=== PATIENT | male | born 1945 | race Caucasian/White ===

== ENCOUNTER 2019-03-28 05:56 | Outpatient (RCR) | payer MEDICARE, SELFPAY | END 2019-03-28 23:59 | disposition home or self-care (01) | LOC: ONCMED 05:56 | PROVIDERS: Family Provider Nurse Practitioner Family; Visit Provider Internal Medicine Hematology & Oncology | DX: Z51.12 Encounter for antineoplastic immunotherapy (principal); C16.0 Malignant neoplasm of cardia; C78.6 Secondary malignant neoplasm of retroperitoneum and peritoneum; C79.89 Secondary malignant neoplasm of other specified sites; F41.9 Anxiety disorder, unspecified; Z79.899 Other long term (current) drug therapy | CPT/HCPCS: 96367; 96413; 96417; 99214; J1100; J1453; J1642 ×2; J2469; J3490; J7050 ×3; J9267; J9308 ×2 ==

== ENCOUNTER 2019-04-20 05:55 | Outpatient (RCR) | payer MEDICARE, SELFPAY | END 2019-04-25 00:01 | LOC: ONCMED 05:55 | PROVIDERS: Family Provider Nurse Practitioner Family; Visit Provider Internal Medicine Hematology & Oncology | DX: C16.0 Malignant neoplasm of cardia (principal); C78.6 Secondary malignant neoplasm of retroperitoneum and peritoneum; C79.89 Secondary malignant neoplasm of other specified sites; R18.8 Other ascites; J18.9 Pneumonia, unspecified organism; Z79.899 Other long term (current) drug therapy | CPT/HCPCS: 99214 ==

== ENCOUNTER 2019-05-25 05:35 | Outpatient (RCR) | payer OTHER, SELFPAY ==
[2019-05-11] MEDS: sodium chloride 0.9% 250 ML 999 ML IV (11:15)
[2019-05-11] MEDS: acetaminophen 325 mg Tablet 650 MG PO (11:15)
--- NOTE | 2019-05-11 11:27 | ONC FU_ITS ---
Dr. Valladares follow up note Patient: Tavares Castaneda Unit #: [id number]: 1945 Dicatated By: Angela Valladares M.D.Date of Visit:May 11, 2019 Onc Med Follow-up/Prog Note History of Present Illness: Mr. Castaneda is a 73-year-old gentleman with history of progressive dysphagia for several months. In early February 2018 he developed some difficulty swallowing. He said he had food sticking under the sternum he would then have nausea and emesis. He did see a local surgeon who recommended EGD. On 03/07/2018 and he 100 went EGD with biopsy. A mass was found a distal esophagus/GEJ, no ulcer and gastritis. 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 HER-2/sean was pending. On 03/15/2018 he [facility] to [facility] with nausea vomiting and was admitted. A CT of the chest abdomen pelvis from 03/16/2018 showed frontal thickening of the distal esophagus/GEJ/ gastric cardia. There are also enlarged lymph nodes along the gastrohepatic ligament, but no distal disease. He reports an estimated 30 pounds weight loss since December 2017. On 03/28/2018 he underwent EUS at [facility]. 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 Also reported it was a few malignant appearing lymph nodes in the celiac region. There is no sign of significant pathology in the pancreas or the common bile duct. The visualized portion of the liver was unremarkable as well as endosonographic images of the left adrenal gland. PET CT from 03/30/2019 at [facility] reports hypermetabolic gastroesophageal junction mass with associated wall thickening with an SUV of 6.6. Scattered mediastinal lymph nodes show mild increased FDG uptake, SUV 2.7, likely inflammatory . There were no abnormal focal areas of FDG uptake to suggest additional sites of metastatic disease. On 04/06/2018 Mr. Castaneda was seen by Dr. Kulwant Malik at [facility] for surgical consult. It was recommended that he pursue neoadjuvant chemotherapy and then return back to Dr. Malik for consideration of possible total gastrectomy with Marco-en Y esophago-jejunostomy and possible feeding tube. He was seen by Dr. Ortiz medical oncologist at [facility] and she offered him FOLFOX or FLOT regimen. HER-2/sean status is negative. MSI is intact and PDL 1 is negative.. Mr. Castaneda opted to do his treatment closer to home and was referred to us . He began his first cycle of modified FOLFOX on 05/03/2018. Follow-up CT scan of chest abdomen pelvis done after 6 doses of FOLFOX, on 08/02/2018 showed slight decrease in size of gastroesophageal mass and decrease in size of an adjacent lymphadenopathy. No evidence of distant metastases Mr Castaneda was evaluated by Dr. Malik at [facility] who recommended continue with 6 more cycles of chemotherapy with FOLFOX and then reevaluate him for surgery. He completed 12 cycles on chemotherapy on 10/19/2018. Diagnostic laproscopy, peritoneal biopsy x3, excision of the left hepatic lobe lesion, esophagogastroduodenoscopy, transversus abdominis plane block on 12/23/[address] Linton at [facility], [place]. The operative reported the operative findings as: 1. widely metastatic medullary peritoneal carcinomatosis. 2. Left sided liver lesion which was resected and found to be a biliary hematoma. 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 Mr Castaneda went to [facility] for second opinion, and was evaluated surgeon who discussed about palliative surgery or hyperthermic intraperitoneal therapy and also saw Dr Urmila Barcenas who recommended ramucirumab and Taxol biweekly. Mr. Castaneda was returned to [facility] for the recommeneded treatment with Cyramza 8mg/kg day 1and paclitaxel 80 mg/m2 day 1 of a 14 day cycle. The paclitaxel was intentionally dose reduced due to pre-existing neuropathy. He began his first dose on February 14, 2019. Abdominal sonogram done on 03/21/2019 showed no evidence of ascites Was admitted to hospital on 04/03/2019 with right middle/lower lobe pneumonia treated with IV antibiotics responded well and was discharge home on oral antibiotics. Patient also underwent CT scan of chest abdomen pelvis on 04/02/2019 which showed complex pulmonary parenchymal abnormality likely infectious/inflammatory with a nodular complement warranting short-term follow-up. Mild right hilar lymphadenopathy could be reactive. Trace right pleural effusion. Moderate nonspecific abdominopelvic fat stranding and fascial thickening with small volume free fluid. cirrhotic morphology of the liver. Nonspecific adrenal thickening Patient was treated with oral antibiotic Zithromax for atypical coverage on 04/20/2019 and underwent follow-up chest x-ray on 05/04/2019 showed minimal residual vague T in the right perihilar region that is improved from prior study done on 04/25/2019 otherwise unremarkable exam Came for follow-up, denies any specific complaint except occasional postnasal drip and as per patient feels bad for day or 2 after chemotherapy otherwise no fever or chills no nausea or vomiting no diarrhea constipation no shortness of breath no palpitation, no abdominal pain no jaundice. Last chemotherapy with Taxol and cyramza was done on 03/28/2019 after the patient was admitted to hospital with pneumonia so chemotherapy was on hold since then and now ready to resume Medications: Latanoprost 1 drop(s) (of 0.005 %) Solution Ophthalmic daily, Lisinopril 1 Tablet (of 25 mg) Oral b.i.d., Metoprolol Tartrate 1 Tablet (of 50 mg) Oral b.i.d., Multivitamin Adults 1 Tablet Oral daily, Prochlorperazine Maleate 1 Tablet (of 10 mg) Oral q 8 hours PRN Allergies: Penicillins Review of Systems: Constitutional - Appetite is good and weight is stable. No fever, chills, hot flashes, or night sweats. Energy level is fair, ENMT - Positive for sinus congestion/drainage. No mouth sores. Positive for sore throat, Hematologic/Lymphatic - No abnormal bruising or bleeding, Respiratory - Positive for shortness of breath. Positive for cough. No pleuritic pain or hemoptysis. Pt is still recovering from pneumonia, Cardiovascular - No chest pains or palpitations, Gastrointestinal - Occasional nausea and vomiting. Occasional heartburn/indigestion. No diarrhea or constipation. No blood in the stool or black stools, Genitourinary (M) - No dysuria or hematuria. No urinary frequency. No urgency or incontinence, Musculoskeletal - No joint or bone pain, Neurologic - No headache or dizziness. Pt reports numbness/tingling in his hands, Psychiatric - No anxiety or depression. No insomnia. Vital Signs: Performed on May 11, 2019 10:30 Height - 66.00 in Weight - 171.4 lbs (HIGH) BSA - 1.87 sq.m BMI - 27.66 Temperature - 97.2 F (LOW) Pulse - 74 /min Respiration - 20 /min BP - 122/82 mm(hg) O2 Sat - 94 % (LOW) Pain - 0 Performance Status: 1 - No physically strenuous activity, but ambulatory and able to carry out light or sedentary work (e.g. office work, light house work). (ECOG) Physical Examination: ENMT - No oral exudates, ulcers, masses, thrush or mucositis. Oropharynx clear. Tongue normal, Respiratory - Lungs are clear to auscultation without rhonchi or wheezing, Cardiovascular - Regular rate and rhythm of heart, Abdomen - Non-tender, non-distended, Good bowel sounds. No guarding or rebound tenderness. No pulsatile masses, Extremities - no edema. Lab/Imaging: Test performed on May 04, 2019 10:57 Glucose 127 mg/dL BUN 18 mg/dL Creatinine 0.86 mg/dL Cr Clearance (Est) 88.96 mL/min Sodium 137 mmol/L Potassium 4.0 mmol/L Chloride 94 mmol/L CO2 32 mmol/L Calcium 8.9 mg/dL Protein, Total 6.9 g/dL Albumin 3.6 g/dL Bilirubin, Total 0.5 mg/dL Alkaline Phosphatase 58 IU/L AST (SGOT) 20 IU/L ALT (SGPT) 20 IU/L WBC 9.2 10^9/L RBC 4.92 10^12/L HGB 14.9 g/dL HCT 47.2 % MCV 95.9 fl MCH 30.3 pg MCHC 31.6 g/dL RDW 15.1 % Platelet Count 139 10^9/L MPV 11.1 fL Neutrophils (Gran) 6.85 10^9/L Lymphocytes 1.11 10^9/L Monocytes 0.88 10^9/L Eosinophils 0.24 10^9/L Basophils 0.04 10^9/L Manual Lymphocytes 12 % Manual Monocytes 10 % Manual Eosinophils 3 % Manual Basophils 0 % Test performed on Mar 13, 2019 09:22 Magnesium 2.3 mg/dL Ua Color yellow Ua Appearance clear Ua Specific [place] 1.020 Ua pH 6.0 Ua Protein trace Ua Glucose negative Ua Ketones negative Ua Blood negative Ua Leuk Esterase negative Ua Nitrites negative Ua Bilirubin negative Ua Urobilinogen 0.2 Test performed on Feb 28, 2019 10:25 Anion Gap 15.3 Globulin 2.0 gm/dL Neutrophil % 86.2 % Lymphocyte % 11.9 % Monocyte % 1.5 % Eosinophil % 0.0 % Basophils % 0.4 % Impression: 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 Liver biopsy was negative showed biliary hamartoma Dysphagia, due to above discussed with patient his disease status, stage and treatment options. He has been offered neoadjuvant chemotherapy per [facility] protocol followed by Marco-e -Y esophagojejunostomy. Considering his age, performance status, significant weight loss, recommended FOLFOX; he is HER-2/sean negative. MSI is intact and PD-L1 is negative. Mr. Castaneda began his first cycle of FOLFOX on 05/03/2018. Follow-up CT scan of chest abdomen pelvis done after 6 doses of FOLFOX, on 08/02/2018 showed slight decrease in size of gastroesophageal mass and decrease in size of an adjacent lymphadenopathy. No evidence of distant metastases Mr Castaneda was evaluated by Dr. Malik at [facility] who recommended continue with 6 more cycles of chemotherapy with FOLFOX and then reevaluate him for surgery. He completed 12 cycles on chemotherapy on 10/19/2018. Diagnostic laproscopy, peritoneal biopsy x3, excision of the left hepatic lobe lesion, esophagogastroduodenoscopy, transversus abdominis plane block on 12/23/[address] Linton at [facility] [place], [place]. The operative reported the operative findings as: 1. widely metastatic medullary peritoneal carcinomatosis. 2. Left sided liver lesion which was resected and found to be a biliary hematoma. 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 Mr Castaneda went to [facility] for second opinion, and was evaluated surgeon who discussed about palliative surgery or hyperthermic intraperitoneal therapy and also saw Dr Urmila Barcenas who recommended ramucirumab and Taxol biweekly. Mr. Castaneda was returned to [facility] for the recommeneded with Cyramza and paclitaxel. He began his first dose on February 14, 2019. Plan: Discussed with patient regarding his labs white blood count 9.2 hemoglobin 14.9 crit 47.2 platelets 139,000 CMP within normal limits Clinically, patient doing well, now recovered from recent episode of right lung pneumonia. His follow-up chest x-ray shows minimal residual vague opacity in the right perihilar which is improved. At this point we will resume his palliative chemotherapy Taxol/cyramza Today, then he will return to clinic in 2 weeks with CBC CMP Mild postnasal drip, could be due to chemotherapy, he was advised to try [id number] Zyrtec or Claritin. As far as feeling better for due to after chemotherapy is concerned could be due to hyperglycemia due to steroids, patient was advised to monitor his blood sugar and if elevated may consider sliding scale and he was also advised to maintain hydration. Next Return to clinic in 2 weeks with CBC CMP Signed By: Angela Valladares M.D. <<Signature on File>>
[2019-05-25 13:38] LABS: Lymphocytes # 0.4 10^3/uL (0.8-4.8); Lymphocytes % 16.1 %; Mean Corpuscular HGB Conc 32.6 g/dL (30.0-36.0); Mean Corpuscular Hemoglobin 29.9 pg (28.0-34.0); Mean Corpuscular Volume 91.7 fL (80-94); Mean Platelet Volume 11.9 fL (7.4-10.4); Monocytes % 1.3 %; Neutrophils # 1.9 10^3/uL (1.8-7.7); Neutrophils % 82.2 %; Nucleated Red Blood Cells % 0 %; Platelet Count 151 10^3/cmm (130-400); Red Blood Count 4.69 10^6/uL (4.1-5.3); Red Cell Distribution Width 14.5 % (12.1-15.1); White Blood Count 2.3 10^3/uL (4.0-10.0)
--- NOTE | 2019-05-25 16:07 | ONC FU_ITS ---
Dr. Valladares follow up note Patient: Tavares Castaneda Unit #: [id number]: 1945 Dicatated By: Angela Valladares M.D.Date of Visit:May 25, 2019 Onc Med Follow-up/Prog Note History of Present Illness: Mr. Castaneda is a 73-year-old gentleman with history of progressive dysphagia for several months. In early February 2018 he developed some difficulty swallowing. He said he had food sticking under the sternum he would then have nausea and emesis. He did see a local surgeon who recommended EGD. On 03/07/2018 and he 100 went EGD with biopsy. A mass was found a distal esophagus/GEJ, no ulcer and gastritis. 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 HER-2/sean was pending. On 03/15/2018 he presented to [facility] with nausea vomiting and was admitted. A CT of the chest abdomen pelvis from 03/16/2018 showed frontal thickening of the distal esophagus/GEJ/ gastric cardia. There are also enlarged lymph nodes along the gastrohepatic ligament, but no distal disease. He reports an estimated 30 pounds weight loss since December 2017. On 03/28/2018 he underwent EUS at [place]. 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 Also reported it was a few malignant appearing lymph nodes in the celiac region. There is no sign of significant pathology in the pancreas or the common bile duct. The visualized portion of the liver was unremarkable as well as endosonographic images of the left adrenal gland. PET CT from 03/30/2019 at [facility] reports hypermetabolic gastroesophageal junction mass with associated wall thickening with an SUV of 6.6. Scattered mediastinal lymph nodes show mild increased FDG uptake, SUV 2.7, likely inflammatory . There were no abnormal focal areas of FDG uptake to suggest additional sites of metastatic disease. On 04/06/2018 Mr. Castaneda was seen by Dr. Kulwant Malik at [facility] for surgical consult. It was recommended that he pursue neoadjuvant chemotherapy and then return back to Dr. Malik for consideration of possible total gastrectomy with Marco-en Y esophago-jejunostomy and possible feeding tube. He was seen by Dr. Ortiz medical oncologist at [facility] and she offered him FOLFOX or FLOT regimen. HER-2/sean status is negative. MSI is intact and PDL 1 is negative.. Mr. Castaneda opted to do his treatment closer to home and was referred to us . He began his first cycle of modified FOLFOX on 05/03/2018. Follow-up CT scan of chest abdomen pelvis done after 6 doses of FOLFOX, on 08/02/2018 showed slight decrease in size of gastroesophageal mass and decrease in size of an adjacent lymphadenopathy. No evidence of distant metastases Mr Castaneda was evaluated by Dr. Malik at [facility] who recommended continue with 6 more cycles of chemotherapy with FOLFOX and then reevaluate him for surgery. He completed 12 cycles on chemotherapy on 10/19/2018. Diagnostic laproscopy, peritoneal biopsy x3, excision of the left hepatic lobe lesion, esophagogastroduodenoscopy, transversus abdominis plane block on 12/23/[address] Linton at [facility], [facility], [place]. The operative reported the operative findings as: 1. widely metastatic medullary peritoneal carcinomatosis. 2. Left sided liver lesion which was resected and found to be a biliary hematoma. 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 Mr Castaneda went to [facility] [place] for second opinion, and was evaluated surgeon who discussed about palliative surgery or hyperthermic intraperitoneal therapy and also saw Dr Urmila Barcenas who recommended ramucirumab and Taxol biweekly. Mr. Castaneda was returned to [facility] for the recommeneded treatment with Cyramza 8mg/kg day 1and paclitaxel 80 mg/m2 day 1 of a 14 day cycle. The paclitaxel was intentionally dose reduced due to pre-existing neuropathy. He began his first dose on February 14, 2019. Abdominal sonogram done on 03/21/2019 showed no evidence of ascites Was admitted to hospital on 04/03/2019 with right middle/lower lobe pneumonia treated with IV antibiotics responded well and was discharge home on oral antibiotics. Patient also underwent CT scan of chest abdomen pelvis on 04/02/2019 which showed complex pulmonary parenchymal abnormality likely infectious/inflammatory with a nodular complement warranting short-term follow-up. Mild right hilar lymphadenopathy could be reactive. Trace right pleural effusion. Moderate nonspecific abdominopelvic fat stranding and fascial thickening with small volume free fluid. cirrhotic morphology of the liver. Nonspecific adrenal thickening Patient was treated with oral antibiotic Zithromax for atypical coverage on 04/20/2019 and underwent follow-up chest x-ray on 05/04/2019 showed minimal residual vague T in the right perihilar region that is improved from prior study done on 04/25/2019 otherwise unremarkable exam Came for follow-up, denies any specific complaints, no fever or chills, no nausea or vomiting but recovering from sinus problem. No abdominal pain no jaundice. No peripheral numbness Medications: Latanoprost 1 drop(s) (of 0.005 %) Solution Ophthalmic daily, Lisinopril 1 Tablet (of 25 mg) Oral b.i.d., LORazepam 1 Tablet (of 0.5 mg) Oral at bedtime PRN, Metoprolol Tartrate 1 Tablet (of 50 mg) Oral b.i.d., Multivitamin Adults 1 Tablet Oral daily Allergies: Penicillins Review of Systems: Review of Systems is not available for this patient. Vital Signs: Performed on May 25, 2019 12:22 Height - 66.00 in Weight - 177.4 lbs (HIGH) BSA - 1.90 sq.m BMI - 28.63 Temperature - 97.2 F (LOW) Pulse - 93 /min Respiration - 19 /min BP - 154/93 mm(hg) (HIGH) O2 Sat - 96 % Pain - 0 Performance Status: 1 - No physically strenuous activity, but ambulatory and able to carry out light or sedentary work (e.g. office work, light house work). (ECOG) Physical Examination: ENMT - No oral exudates, ulcers, masses, thrush or mucositis. Oropharynx clear. Tongue normal, Respiratory - Lungs are clear to auscultation without rhonchi or wheezing, Cardiovascular - Regular rate and rhythm of heart, Abdomen - Non-tender, non-distended, Good bowel sounds. No guarding or rebound tenderness. No pulsatile masses, Extremities - no edema. Lab/Imaging: Test performed on May 23, 2019 09:06 Glucose 108 mg/dL BUN 20 mg/dL Creatinine 0.77 mg/dL Cr Clearance (Est) 99.36 mL/min Sodium 145 mmol/L Potassium 3.6 mmol/L Chloride 99 mmol/L CO2 34 mmol/L Calcium 8.6 mg/dL Protein, Total 6.1 g/dL Albumin 3.8 g/dL Bilirubin, Total 0.2 mg/dL Alkaline Phosphatase 50 IU/L AST (SGOT) 20 IU/L ALT (SGPT) 20 IU/L WBC 3.1 10^9/L RBC 4.62 10^12/L HGB 14.1 g/dL HCT 44.1 % MCV 95.5 fl MCH 30.5 pg MCHC 32.0 g/dL RDW 15.0 % Platelet Count 155 10^9/L MPV 11.0 fL Neutrophils (Gran) 1.56 10^9/L Lymphocytes 0.98 10^9/L Monocytes 0.46 10^9/L Eosinophils 0.05 10^9/L Basophils 0.01 10^9/L Manual Lymphocytes 32 % Manual Monocytes 15 % Manual Eosinophils 2 % Manual Basophils 0 % Test performed on Mar 13, 2019 09:22 Magnesium 2.3 mg/dL Ua Color yellow Ua Appearance clear Ua Specific [place] 1.020 Ua pH 6.0 Ua Protein trace Ua Glucose negative Ua Ketones negative Ua Blood negative Ua Leuk Esterase negative Ua Nitrites negative Ua Bilirubin negative Ua Urobilinogen 0.2 Test performed on Feb 28, 2019 10:25 Anion Gap 15.3 Globulin 2.0 gm/dL Neutrophil % 86.2 % Lymphocyte % 11.9 % Monocyte % 1.5 % Eosinophil % 0.0 % Basophils % 0.4 % Impression: 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 Liver biopsy was negative showed biliary hamartoma Dysphagia, due to above discussed with patient his disease status, stage and treatment options. He has been offered neoadjuvant chemotherapy per [facility] protocol followed by Marco-e -Y esophagojejunostomy. Considering his age, performance status, significant weight loss, recommended FOLFOX; he is HER-2/sean negative. MSI is intact and PD-L1 is negative. Mr. Castaneda began his first cycle of FOLFOX on 05/03/2018. Follow-up CT scan of chest abdomen pelvis done after 6 doses of FOLFOX, on 08/02/2018 showed slight decrease in size of gastroesophageal mass and decrease in size of an adjacent lymphadenopathy. No evidence of distant metastases Mr Castaneda was evaluated by Dr. Malik at [facility] who recommended continue with 6 more cycles of chemotherapy with FOLFOX and then reevaluate him for surgery. He completed 12 cycles on chemotherapy on 10/19/2018. Diagnostic laproscopy, peritoneal biopsy x3, excision of the left hepatic lobe lesion, esophagogastroduodenoscopy, transversus abdominis plane block on 12/23/[address] Linton at [facility], [place], [place]. The operative reported the operative findings as: 1. widely metastatic medullary peritoneal carcinomatosis. 2. Left sided liver lesion which was resected and found to be a biliary hematoma. 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 Mr Castaneda went to [facility] [place] for second opinion, and was evaluated surgeon who discussed about palliative surgery or hyperthermic intraperitoneal therapy and also saw Dr Urmila Barcenas who recommended ramucirumab and Taxol biweekly. Mr. Castaneda was returned to [facility] for the recommeneded with Cyramza and paclitaxel. He began his first dose on February 14, 2019. Plan: Discussed with patient regarding his labs white blood count 2.3 hemoglobin 14 crit 43 platelets 151,000 ANC 1900 Clinically, patient is doing well with no signs symptoms suggestive of disease progression or infection. Patient was scheduled for his next cycle of chemotherapy with Taxol/cyramza, but his lab shows progressive leukopenia/neutropenia, etiology unclear, underlying virus infection versus cumulative chemotherapy toxicity. 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 Signed By: Angela Valladares M.D. <<Signature on File>>
== END 2019-05-26 23:59 | disposition home or self-care (01) ==
LOC: ONCMED 05:35
PROVIDERS: Visit Provider Internal Medicine Hematology & Oncology
DX: Z51.12 Encounter for antineoplastic immunotherapy (principal); C16.0 Malignant neoplasm of cardia; C78.6 Secondary malignant neoplasm of retroperitoneum and peritoneum; D70.1 Agranulocytosis secondary to cancer chemotherapy; T45.1X5A Adverse effect of antineoplastic and immunosuppressive drugs, initial encounter; R73.9 Hyperglycemia, unspecified; T38.0X5A Adverse effect of glucocorticoids and synthetic analogues, initial encounter; Z87.01 Personal history of pneumonia (recurrent)
CPT/HCPCS: 36591; 85025; 96367; 96413; 96417; 99214; J1100; J1200; J1453; J2469; J3490; J7050; J9267; J9308

== ENCOUNTER 2019-06-08 05:52 | Outpatient (RCR) | payer OTHER, SELFPAY ==
[2019-06-08] MEDS: sodium chloride 0.9% 250 ML 999 ML IV (10:47)
[2019-06-08] MEDS: acetaminophen 325 mg Tablet 650 MG PO (10:48)
--- NOTE | 2019-06-08 13:17 | ONC FU_ITS ---
Dr. Valladares follow up note Patient: Tavares Castaneda Unit #: [id number]: 1945 Dicatated By: Angela Vlaladares M.D.Date of Visit:Jun 08, 2019 Onc Med Follow-up/Prog Note History of Present Illness: Mr. Castaneda is a 73-year-old gentleman with history of progressive dysphagia for several months. In early February 2018 he developed some difficulty swallowing. He said he had food sticking under the sternum he would then have nausea and emesis. He did see a local surgeon who recommended EGD. On 03/07/2018 and he 100 went EGD with biopsy. A mass was found a distal esophagus/GEJ, no ulcer and gastritis. 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 HER-2/sean was pending. On 03/15/2018 he presented to [facility] with nausea vomiting and was admitted. A CT of the chest abdomen pelvis from 03/16/2018 showed frontal thickening of the distal esophagus/GEJ/ gastric cardia. There are also enlarged lymph nodes along the gastrohepatic ligament, but no distal disease. He reports an estimated 30 pounds weight loss since December 2017. On 03/28/2018 he underwent EUS at [place]. 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 Also reported it was a few malignant appearing lymph nodes in the celiac region. There is no sign of significant pathology in the pancreas or the common bile duct. The visualized portion of the liver was unremarkable as well as endosonographic images of the left adrenal gland. PET CT from 03/30/2019 at [facility] reports hypermetabolic gastroesophageal junction mass with associated wall thickening with an SUV of 6.6. Scattered mediastinal lymph nodes show mild increased FDG uptake, SUV 2.7, likely inflammatory . There were no abnormal focal areas of FDG uptake to suggest additional sites of metastatic disease. On 04/06/2018 Mr. Castaneda was seen by Dr. Kulwant Malik at [facility] for surgical consult. It was recommended that he pursue neoadjuvant chemotherapy and then return back to Dr. Malik for consideration of possible total gastrectomy with Marco-en Y esophago-jejunostomy and possible feeding tube. He was seen by Dr. Ortiz medical oncologist at [facility] and she offered him FOLFOX or FLOT regimen. HER-2/sean status is negative. MSI is intact and PDL 1 is negative.. Mr. Castaneda opted to do his treatment closer to home and was referred to us . He began his first cycle of modified FOLFOX on 05/03/2018. Follow-up CT scan of chest abdomen pelvis done after 6 doses of FOLFOX, on 08/02/2018 showed slight decrease in size of gastroesophageal mass and decrease in size of an adjacent lymphadenopathy. No evidence of distant metastases Mr Castaneda was evaluated by Dr. Malik at [facility] who recommended continue with 6 more cycles of chemotherapy with FOLFOX and then reevaluate him for surgery. He completed 12 cycles on chemotherapy on 10/19/2018. Diagnostic laproscopy, peritoneal biopsy x3, excision of the left hepatic lobe lesion, esophagogastroduodenoscopy, transversus abdominis plane block on 12/23/[address] Linton at [facility], [place]. The operative reported the operative findings as: 1. widely metastatic medullary peritoneal carcinomatosis. 2. Left sided liver lesion which was resected and found to be a biliary hematoma. 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 Mr Castaneda went to [facility] [place] for second opinion, and was evaluated surgeon who discussed about palliative surgery or hyperthermic intraperitoneal therapy and also saw Dr Urmila Barcenas who recommended ramucirumab and Taxol biweekly. Mr. Castaneda was returned to [facility] for the recommeneded treatment with Cyramza 8mg/kg day 1and paclitaxel 80 mg/m2 day 1 of a 14 day cycle. The paclitaxel was intentionally dose reduced due to pre-existing neuropathy. He began his first dose on February 14, 2019. Abdominal sonogram done on 03/21/2019 showed no evidence of ascites Was admitted to hospital on 04/03/2019 with right middle/lower lobe pneumonia treated with IV antibiotics responded well and was discharge home on oral antibiotics. Patient also underwent CT scan of chest abdomen pelvis on 04/02/2019 which showed complex pulmonary parenchymal abnormality likely infectious/inflammatory with a nodular complement warranting short-term follow-up. Mild right hilar lymphadenopathy could be reactive. Trace right pleural effusion. Moderate nonspecific abdominopelvic fat stranding and fascial thickening with small volume free fluid. cirrhotic morphology of the liver. Nonspecific adrenal thickening Patient was treated with oral antibiotic Zithromax for atypical coverage on 04/20/2019 and underwent follow-up chest x-ray on 05/04/2019 showed minimal residual vague T in the right perihilar region that is improved from prior study done on 04/25/2019 otherwise unremarkable exam Came for follow-up, denies any specific complaints, except off and on cough with phlegm and he is using home oxygen. Patient said he was supposed to see lye treater per his underlying chronic lung problem like emphysema but then he was diagnosed with cancer and the evaluation was postponed. Now he will see lye treater in [facility]. Other than that denies any fever chills denies any nausea vomiting denies any jaundice denies any abdominal pain. Tolerating Taxol/cyramza reasonably well. Medications: Latanoprost 1 drop(s) (of 0.005 %) Solution Ophthalmic daily, Lisinopril 1 Tablet (of 25 mg) Oral b.i.d., LORazepam 1 Tablet (of 0.5 mg) Oral at bedtime PRN, Metoprolol Tartrate 1 Tablet (of 50 mg) Oral b.i.d., Multivitamin Adults 1 Tablet Oral daily Allergies: Penicillins Review of Systems: Constitutional - Appetite is good and weight is stable. No fever, chills, hot flashes, or night sweats. Energy level is fair, ENMT - Positive for sinus congestion/drainage. No mouth sores. Positive for sore throat, Hematologic/Lymphatic - No abnormal bruising or bleeding, Respiratory - Positive for shortness of breath. Positive for cough. No pleuritic pain or hemoptysis. Pt reports wheezing, Cardiovascular - No chest pains or palpitations, Gastrointestinal - Occasional nausea and vomiting. Occasional heartburn/indigestion. No diarrhea or constipation. No blood in the stool or black stools, Genitourinary (M) - No dysuria or hematuria. No urinary frequency. No urgency or incontinence, Musculoskeletal - No joint or bone pain, Neurologic - No headache or dizziness. Pt reports numbness/tingling in his hands, Psychiatric - No anxiety or depression. No insomnia. Vital Signs: Vitals are not available for this patient. Performance Status: 1 - No physically strenuous activity, but ambulatory and able to carry out light or sedentary work (e.g. office work, light house work). (ECOG) Physical Examination: ENMT - . No oral exudates, ulcers, masses, thrush or mucositis. Oropharynx clear. Tongue normal, Respiratory - poor air entry, Cardiovascular - Regular rate and rhythm of heart, Abdomen - Non-tender, non-distended, Good bowel sounds. No guarding or rebound tenderness. No pulsatile masses, Extremities - no edema. Lab/Imaging: Test performed on Jun 06, 2019 09:27 Glucose 119 mg/dL BUN 18 mg/dL Creatinine 0.85 mg/dL Cr Clearance (Est) 90.01 mL/min Sodium 141 mmol/L Potassium 3.5 mmol/L Chloride 100 mmol/L CO2 31 mmol/L Calcium 8.7 mg/dL Protein, Total 6.2 g/dL Albumin 3.8 g/dL Bilirubin, Total 0.2 mg/dL Alkaline Phosphatase 48 IU/L AST (SGOT) 22 IU/L ALT (SGPT) 21 IU/L WBC 6.5 10^9/L RBC 5.13 10^12/L HGB 15.6 g/dL HCT 48.3 % MCV 94.2 fl MCH 30.4 pg MCHC 32.3 g/dL RDW 15.5 % Platelet Count 131 10^9/L MPV 11.5 fL Neutrophils (Gran) 3.95 10^9/L Lymphocytes 1.54 10^9/L Monocytes 0.67 10^9/L Eosinophils 0.05 10^9/L Basophils 0.06 10^9/L Manual Lymphocytes 24 % Manual Monocytes 10 % Manual Eosinophils 1 % Manual Basophils 1 % Test performed on May 25, 2019 13:12 Neutrophil % 82.2 % Lymphocyte % 16.1 % Monocyte % 1.3 % Eosinophil % 0.0 % Basophils % 0.0 % Test performed on Mar 13, 2019 09:22 Magnesium 2.3 mg/dL Ua Color yellow Ua Appearance clear Ua Specific [place] 1.020 Ua pH 6.0 Ua Protein trace Ua Glucose negative Ua Ketones negative Ua Blood negative Ua Leuk Esterase negative Ua Nitrites negative Ua Bilirubin negative Ua Urobilinogen 0.2 Test performed on Feb 28, 2019 10:25 Anion Gap 15.3 Globulin 2.0 gm/dL Impression: 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 Liver biopsy was negative showed biliary hamartoma Dysphagia, due to above discussed with patient his disease status, stage and treatment options. He has been offered neoadjuvant chemotherapy per [facility] protocol followed by Marco-e -Y esophagojejunostomy. Considering his age, performance status, significant weight loss, recommended FOLFOX; he is HER-2/sean negative. MSI is intact and PD-L1 is negative. Mr. Castaneda began his first cycle of FOLFOX on 05/03/2018. Follow-up CT scan of chest abdomen pelvis done after 6 doses of FOLFOX, on 08/02/2018 showed slight decrease in size of gastroesophageal mass and decrease in size of an adjacent lymphadenopathy. No evidence of distant metastases Mr Castaneda was evaluated by Dr. Malik at [facility] who recommended continue with 6 more cycles of chemotherapy with FOLFOX and then reevaluate him for surgery. He completed 12 cycles on chemotherapy on 10/19/2018. Diagnostic laproscopy, peritoneal biopsy x3, excision of the left hepatic lobe lesion, esophagogastroduodenoscopy, transversus abdominis plane block on 12/23/[address] Linton at [facility], [place]. The operative reported the operative findings as: 1. widely metastatic medullary peritoneal carcinomatosis. 2. Left sided liver lesion which was resected and found to be a biliary hematoma. 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 Mr Castaneda went to [facility] for second opinion, and was evaluated surgeon who discussed about palliative surgery or hyperthermic intraperitoneal therapy and also saw Dr Urmila Barcenas who recommended ramucirumab and Taxol biweekly. Mr. Castaneda was returned to [facility] for the recommeneded with Cyramza and paclitaxel. He began his first dose on February 14, 2019. Plan: Discussed with patient regarding his labs white blood count 6.5 hemoglobin 15.6 crit 48.3 platelets 131,000 ANC 3950 CMP within normal limits Clinically, patient is doing well, tolerating palliative therapy with Taxol/cyramza well but with expected side effects e.g. now with progressive leukopenia/neutropenia. We'll proceed with the next dose #6 with Taxol/cyramza today and then he will return to clinic in 2 weeks with CBC CMP and with follow-up CT PET scan to assess disease response. Return Signed By: Angela Valladares M.D. <<Signature on File>>
== END 2019-06-24 23:59 | disposition home or self-care (01) ==
LOC: ONCMED 05:52
PROVIDERS: PCP Family Medicine; Visit Provider Internal Medicine Hematology & Oncology
DX: Z51.12 Encounter for antineoplastic immunotherapy (principal); C16.0 Malignant neoplasm of cardia; C78.6 Secondary malignant neoplasm of retroperitoneum and peritoneum; Z92.21 Personal history of antineoplastic chemotherapy; Z99.81 Dependence on supplemental oxygen; Z87.01 Personal history of pneumonia (recurrent)
CPT/HCPCS: 96367; 96413; 96417; 99214; J1100; J1200; J1453; J2469; J3490; J7050; J9267; J9308

== ENCOUNTER 2019-07-18 05:38 | Outpatient (RCR) | payer OTHER, SELFPAY ==
--- NOTE | 2019-06-29 11:12 | ONC FU_ITS ---
Dr. Valladares follow up note Patient: Tavares Castaneda Unit #: [id number]: 1945 Dicatated By: Angela Valladares M.D.Date of Visit:Jun 29, 2019 Onc Med Follow-up/Prog Note History of Present Illness: Mr. Castaneda is a 73-year-old gentleman with history of progressive dysphagia for several months. In early February 2018 he developed some difficulty swallowing. He said he had food sticking under the sternum he would then have nausea and emesis. He did see a local surgeon who recommended EGD. On 03/07/2018 and he 100 went EGD with biopsy. A mass was found a distal esophagus/GEJ, no ulcer and gastritis. 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 HER-2/sean was pending. On 03/15/2018 he presented to [facility] with nausea vomiting and was admitted. A CT of the chest abdomen pelvis from 03/16/2018 showed frontal thickening of the distal esophagus/GEJ/ gastric cardia. There are also enlarged lymph nodes along the gastrohepatic ligament, but no distal disease. He reports an estimated 30 pounds weight loss since December 2017. On 03/28/2018 he underwent EUS at [place]. 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 Also reported it was a few malignant appearing lymph nodes in the celiac region. There is no sign of significant pathology in the pancreas or the common bile duct. The visualized portion of the liver was unremarkable as well as endosonographic images of the left adrenal gland. PET CT from 03/30/2019 at [facility] reports hypermetabolic gastroesophageal junction mass with associated wall thickening with an SUV of 6.6. Scattered mediastinal lymph nodes show mild increased FDG uptake, SUV 2.7, likely inflammatory . There were no abnormal focal areas of FDG uptake to suggest additional sites of metastatic disease. On 04/06/2018 Mr. Castaneda was seen by Dr. Kulwant Malik at [facility] for surgical consult. It was recommended that he pursue neoadjuvant chemotherapy and then return back to Dr. Malik for consideration of possible total gastrectomy with Marco-en Y esophago-jejunostomy and possible feeding tube. He was seen by Dr. Ortiz medical oncologist at [facility] and she offered him FOLFOX or FLOT regimen. HER-2/sean status is negative. MSI is intact and PDL 1 is negative.. Mr. Castaneda opted to do his treatment closer to home and was referred to us . He began his first cycle of modified FOLFOX on 05/03/2018. Follow-up CT scan of chest abdomen pelvis done after 6 doses of FOLFOX, on 08/02/2018 showed slight decrease in size of gastroesophageal mass and decrease in size of an adjacent lymphadenopathy. No evidence of distant metastases Mr Castaneda was evaluated by Dr. Malik at [facility] who recommended continue with 6 more cycles of chemotherapy with FOLFOX and then reevaluate him for surgery. He completed 12 cycles on chemotherapy on 10/19/2018. Diagnostic laproscopy, peritoneal biopsy x3, excision of the left hepatic lobe lesion, esophagogastroduodenoscopy, transversus abdominis plane block on 12/23/[address] Linton at [facility], [facility], [place]. The operative reported the operative findings as: 1. widely metastatic medullary peritoneal carcinomatosis. 2. Left sided liver lesion which was resected and found to be a biliary hematoma. 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 Mr Castaneda went to [facility] for second opinion, and was evaluated surgeon who discussed about palliative surgery or hyperthermic intraperitoneal therapy and also saw Dr Urmila Barcenas who recommended ramucirumab and Taxol biweekly. Mr. Castaneda was [facility] the recommeneded treatment with Cyramza 8mg/kg day 1and paclitaxel 80 mg/m2 day 1 of a 14 day cycle. The paclitaxel was intentionally dose reduced due to pre-existing neuropathy. He began his first dose on February 14, 2019. Abdominal sonogram done on 03/21/2019 showed no evidence of ascites Was admitted to hospital on 04/03/2019 with right middle/lower lobe pneumonia treated with IV antibiotics responded well and was discharge home on oral antibiotics. Patient also underwent CT scan of chest abdomen pelvis on 04/02/2019 which showed complex pulmonary parenchymal abnormality likely infectious/inflammatory with a nodular complement warranting short-term follow-up. Mild right hilar lymphadenopathy could be reactive. Trace right pleural effusion. Moderate nonspecific abdominopelvic fat stranding and fascial thickening with small volume free fluid. cirrhotic morphology of the liver. Nonspecific adrenal thickening Patient was treated with oral antibiotic Zithromax for atypical coverage on 04/20/2019 and underwent follow-up chest x-ray on 05/04/2019 showed minimal residual vague T in the right perihilar region that is improved from prior study done on 04/25/2019 otherwise unremarkable exam Came for follow-up, complaining of mild shortness of breath with exertion, still smoking but no chest pain or palpitation. Also had episode of tooth infection, resolved with Levaquin. Sometime bloatedness especially after probiotics, otherwise no diarrhea constipation. No fever or chills. Scheduled for follow-up CT PET scan in [place] on next . Medications: Clindamycin HCl 1 Capsule (of 300 mg) Oral t.i.d. for 10 days, Latanoprost 1 drop(s) (of 0.005 %) Solution Ophthalmic daily, Lisinopril 1 Tablet (of 25 mg) Oral b.i.d., LORazepam 1 Tablet (of 0.5 mg) Oral at bedtime PRN, Metoprolol Tartrate 1 Tablet (of 50 mg) Oral b.i.d., Multivitamin Adults 1 Tablet Oral daily Allergies: Penicillins Review of Systems: Review of Systems is not available for this patient. Vital Signs: Performed on Jun 29, 2019 09:28 Height - 66.00 in Weight - 176.8 lbs (LOW) BSA - 1.90 sq.m BMI - 28.54 Temperature - 97.6 F (LOW) Pulse - 79 /min Respiration - 18 /min BP - 136/94 mm(hg) O2 Sat - 94 % (LOW) Pain - 0 Performance Status: 0 - Fully active, able to carry on all predisease activities without restrictions. (ECOG) Physical Examination: ENMT - No oral exudates, ulcers, masses, thrush or mucositis. Oropharynx clear. Tongue normal, Respiratory - Lungs are clear to auscultation without rhonchi or wheezing, Cardiovascular - Regular rate and rhythm of heart, Abdomen - Non-tender, non-distended Good bowel sounds. No guarding or rebound tenderness. No pulsatile masses, Extremities - no edema. Lab/Imaging: Test performed on Jun 27, 2019 09:26 Glucose 122 mg/dL BUN 20 mg/dL Creatinine 0.97 mg/dL Cr Clearance (Est) 78.87 mL/min Sodium 145 mmol/L Potassium 4.0 mmol/L Chloride 102 mmol/L CO2 31 mmol/L Calcium 9.4 mg/dL Protein, Total 6.9 g/dL Albumin 4.0 g/dL Bilirubin, Total 0.2 mg/dL Alkaline Phosphatase 48 IU/L AST (SGOT) 20 IU/L ALT (SGPT) 18 IU/L WBC 4.0 10^9/L RBC 5.28 10^12/L HGB 15.8 g/dL HCT 49.9 % MCV 94.5 fl MCH 29.9 pg MCHC 31.7 g/dL RDW 15.4 % Platelet Count 180 10^9/L MPV 11.2 fL Neutrophils (Gran) 1.85 10^9/L Lymphocytes 1.01 10^9/L Monocytes 0.87 10^9/L Eosinophils 0.07 10^9/L Basophils 0.06 10^9/L Manual Lymphocytes 25 % Manual Monocytes 22 % Manual Eosinophils 2 % Manual Basophils 2 % Test performed on May 25, 2019 13:12 Neutrophil % 82.2 % Lymphocyte % 16.1 % Monocyte % 1.3 % Eosinophil % 0.0 % Basophils % 0.0 % Test performed on Mar 13, 2019 09:22 Magnesium 2.3 mg/dL Ua Color yellow Ua Appearance clear Ua Specific [place] 1.020 Ua pH 6.0 Ua Protein trace Ua Glucose negative Ua Ketones negative Ua Blood negative Ua Leuk Esterase negative Ua Nitrites negative Ua Bilirubin negative Ua Urobilinogen 0.2 Test performed on Feb 28, 2019 10:25 Anion Gap 15.3 Globulin 2.0 gm/dL Impression: 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 Liver biopsy was negative showed biliary hamartoma Dysphagia, due to above discussed with patient his disease status, stage and treatment options. He has been offered neoadjuvant chemotherapy per [facility] protocol followed by Marco-e -Y esophagojejunostomy. Considering his age, performance status, significant weight loss, recommended FOLFOX; he is HER-2/sean negative. MSI is intact and PD-L1 is negative. Mr. Castaneda began his first cycle of FOLFOX on 05/03/2018. Follow-up CT scan of chest abdomen pelvis done after 6 doses of FOLFOX, on 08/02/2018 showed slight decrease in size of gastroesophageal mass and decrease in size of an adjacent lymphadenopathy. No evidence of distant metastases Mr Castaneda was evaluated by Dr. Malik at [facility] who recommended continue with 6 more cycles of chemotherapy with FOLFOX and then reevaluate him for surgery. He completed 12 cycles on chemotherapy on 10/19/2018. Diagnostic laproscopy, peritoneal biopsy x3, excision of the left hepatic lobe lesion, esophagogastroduodenoscopy, transversus abdominis plane block on 12/23/[address] Linton at [facility], [facility], [place]. The operative reported the operative findings as: 1. widely metastatic medullary peritoneal carcinomatosis. 2. Left sided liver lesion which was resected and found to be a biliary hematoma. 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 Mr Castaneda went to [facility] for second opinion, and was evaluated surgeon who discussed about palliative surgery or hyperthermic intraperitoneal therapy and also saw Dr Urmila Barcenas who recommended ramucirumab and Taxol biweekly. Mr. Castaneda was returned to [facility] for the recommeneded with Cyramza and paclitaxel. He began his first dose on February 14, 2019. Plan: Discussed with patient regarding his labs from 06/27/2019 white blood count 4 hemoglobin 15.8 crit 49.9 platelets 180,000 CMP within normal limits Clinically, patient is doing well, plan was to give him next cycle of treatment with cyramza/Taxol but patient and his wants to wait till PET scan is done to see if this regimen is effective, patient is scheduled to get follow-up CT PET scan on next so we will see him back Wednesday after CT PET scan and if it shows good response then will continue with same treatment and consult GI for bloatedness and pulmonology to optimize pulmonary function. Signed By: Angela Valladares M.D. <<Signature on File>>
--- NOTE | 2019-07-11 18:24 | ONC FU_ITS ---
Dr. Valladares follow up note Patient: Tavares Castaneda Unit #: [id number]: 1945 Dicatated By: Angela Valladares M.D.Date of Visit:Jul 11, 2019 Onc Med Follow-up/Prog Note History of Present Illness: Mr. Castaneda is a 73-year-old gentleman with history of progressive dysphagia for several months. In early February 2018 he developed some difficulty swallowing. He said he had food sticking under the sternum he would then have nausea and emesis. He did see a local surgeon who recommended EGD. On 03/07/2018 and he 100 went EGD with biopsy. A mass was found a distal esophagus/GEJ, no ulcer and gastritis. 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 HER-2/sean was pending. On 03/15/2018 he presented to [facility] with nausea vomiting and was admitted. A CT of the chest abdomen pelvis from 03/16/2018 showed frontal thickening of the distal esophagus/GEJ/ gastric cardia. There are also enlarged lymph nodes along the gastrohepatic ligament, but no distal disease. He reports an estimated 30 pounds weight loss since December 2017. On 03/28/2018 he underwent EUS at [place]. 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 Also reported it was a few malignant appearing lymph nodes in the celiac region. There is no sign of significant pathology in the pancreas or the common bile duct. The visualized portion of the liver was unremarkable as well as endosonographic images of the left adrenal gland. PET CT from 03/30/2019 at [facility] reports hypermetabolic gastroesophageal junction mass with associated wall thickening with an SUV of 6.6. Scattered mediastinal lymph nodes show mild increased FDG uptake, SUV 2.7, likely inflammatory . There were no abnormal focal areas of FDG uptake to suggest additional sites of metastatic disease. On 04/06/2018 Mr. Castaneda was seen by Dr. Kulwant Malik at [facility] for surgical consult. It was recommended that he pursue neoadjuvant chemotherapy and then return back to Dr. Malik for consideration of possible total gastrectomy with Marco-en Y esophago-jejunostomy and possible feeding tube. He was seen by Dr. Ortiz medical oncologist at [facility] and she offered him FOLFOX or FLOT regimen. HER-2/sean status is negative. MSI is intact and PDL 1 is negative.. Mr. Castaneda opted to do his treatment closer to home and was referred to us . He began his first cycle of modified FOLFOX on 05/03/2018. Follow-up CT scan of chest abdomen pelvis done after 6 doses of FOLFOX, on 08/02/2018 showed slight decrease in size of gastroesophageal mass and decrease in size of an adjacent lymphadenopathy. No evidence of distant metastases Mr Castaneda was evaluated by Dr. Malik at [facility] who recommended continue with 6 more cycles of chemotherapy with FOLFOX and then reevaluate him for surgery. He completed 12 cycles on chemotherapy on 10/19/2018. Diagnostic laproscopy, peritoneal biopsy x3, excision of the left hepatic lobe lesion, esophagogastroduodenoscopy, transversus abdominis plane block on 12/23/[address] Linton at [facility], [facility], [place]. The operative reported the operative findings as: 1. widely metastatic medullary peritoneal carcinomatosis. 2. Left sided liver lesion which was resected and found to be a biliary hematoma. 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 Mr Castaneda went to [facility] for second opinion, and was evaluated surgeon who discussed about palliative surgery or hyperthermic intraperitoneal therapy and also saw Dr Urmila Barcenas who recommended ramucirumab and Taxol biweekly. Mr. Castaneda was returned to [facility] [address] for the recommeneded treatment with Cyramza 8mg/kg day 1and paclitaxel 80 mg/m2 day 1 of a 14 day cycle. The paclitaxel was intentionally dose reduced due to pre-existing neuropathy. He began his first dose on February 14, 2019. Abdominal sonogram done on 03/21/2019 showed no evidence of ascites Was admitted to hospital on 04/03/2019 with right middle/lower lobe pneumonia treated with IV antibiotics responded well and was discharge home on oral antibiotics. Patient also underwent CT scan of chest abdomen pelvis on 04/02/2019 which showed complex pulmonary parenchymal abnormality likely infectious/inflammatory with a nodular complement warranting short-term follow-up. Mild right hilar lymphadenopathy could be reactive. Trace right pleural effusion. Moderate nonspecific abdominopelvic fat stranding and fascial thickening with small volume free fluid. cirrhotic morphology of the liver. Nonspecific adrenal thickening Patient was treated with oral antibiotic Zithromax for atypical coverage on 04/20/2019 and underwent follow-up chest x-ray on 05/04/2019 showed minimal residual vague abnormality in the right perihilar region that is improved from prior study done on 04/25/[address] PET scan was done on 07/06/2019 Showed stomach is incompletely distended with mural thickening and mild hypermetabolism along the gastric body, fundus which could represent idiopathic gastric cancer. Hypermetabolic gastrohepatic ligament lymph node concerning for michael metastasis no additional hypermetabolic lymph nodes identified. Increase in the size of hypermetabolic right adrenal deposit Development of small volume ascites with some subtle areas of omental nodularity concerning for peritoneal carcinomatosis. The portion of ascites could be hydrostatic from portal venous hypertension related to cirrhosis. Bilateral pleural fluid collection without hypermetabolism Came for follow-up, complaining of constipation the last 4 days,off and on liquid stools. no acute abdominal pain but vague discomfort with food. No nausea or vomiting. No dysuria or hematuria, no fever or chills. Complaining of bloatedness also. Medications: Clindamycin HCl 1 Capsule (of 300 mg) Oral t.i.d. for 10 days, Latanoprost 1 drop(s) (of 0.005 %) Solution Ophthalmic daily, Lisinopril 1 Tablet (of 25 mg) Oral b.i.d., LORazepam 1 Tablet (of 0.5 mg) Oral at bedtime PRN, Metoprolol Tartrate 1 Tablet (of 50 mg) Oral b.i.d., Multivitamin Adults 1 Tablet Oral daily Allergies: Penicillins Review of Systems: Constitutional - Appetite is poor and weight is stable. No fever, chills, hot flashes, or night sweats. Energy level is poor, ENMT - Positive for sinus congestion/drainage. No mouth sores. Positive for sore throat, Hematologic/Lymphatic - No abnormal bruising or bleeding, Respiratory - Positive for shortness of breath. No cough. No pleuritic pain or hemoptysis. Pt reports wheezing, Cardiovascular - No chest pains or palpitations, Gastrointestinal - Occasional nausea and vomiting. Occasional heartburn/indigestion. No diarrhea. Positive for constipation. No blood in the stool or black stools, Genitourinary (M) - No dysuria or hematuria. No urinary frequency. No urgency or incontinence, Musculoskeletal - No joint or bone pain, Neurologic - No headache or dizziness. Pt reports numbness/tingling in his hands, Psychiatric - No anxiety or depression. No insomnia. Vital Signs: Performed on Jul 11, 2019 09:04 Height - 66.00 in Weight - 178.0 lbs (HIGH) BSA - 1.90 sq.m BMI - 28.73 Temperature - 97.8 F (LOW) Pulse - 69 /min Respiration - 26 /min BP - 144/91 mm(hg) (HIGH) O2 Sat - 92 % (LOW) Pain - 9 Performance Status: 1 - No physically strenuous activity, but ambulatory and able to carry out light or sedentary work (e.g. office work, light house work). (ECOG) Physical Examination: ENMT - No oral exudates, ulcers, masses, thrush or mucositis. Oropharynx clear. Tongue normal, Respiratory - decreased breath sounds at base bilaterally otherwise clear, Cardiovascular - Regular rate and rhythm of heart, Abdomen - distended, faint bowel sounds. No guarding or rebound tenderness. No pulsatile masses, Extremities - no edema or rash. Lab/Imaging: Test performed on Jul 07, 2019 09:30 Glucose 143 mg/dL BUN 20 mg/dL Creatinine 0.95 mg/dL Cr Clearance (Est) 80.53 mL/min Sodium 142 mmol/L Potassium 3.8 mmol/L Chloride 96 mmol/L CO2 35 mmol/L Calcium 9.0 mg/dL Protein, Total 6.8 g/dL Albumin 4.1 g/dL Bilirubin, Total 0.4 mg/dL Alkaline Phosphatase 51 IU/L AST (SGOT) 20 IU/L ALT (SGPT) 17 IU/L WBC 7.8 10^9/L RBC 5.51 10^12/L HGB 16.9 g/dL HCT 52.1 % MCV 94.6 fl MCH 30.7 pg MCHC 32.4 g/dL RDW 15.2 % Platelet Count 126 10^9/L MPV 11.0 fL Neutrophils (Gran) 5.69 10^9/L Lymphocytes 1.18 10^9/L Monocytes 0.76 10^9/L Eosinophils 0.06 10^9/L Basophils 0.04 10^9/L Manual Lymphocytes 15 % Manual Monocytes 10 % Manual Eosinophils 1 % Manual Basophils 1 % Test performed on May 25, 2019 13:12 Neutrophil % 82.2 % Lymphocyte % 16.1 % Monocyte % 1.3 % Eosinophil % 0.0 % Basophils % 0.0 % Test performed on Mar 13, 2019 09:22 Magnesium 2.3 mg/dL Ua Color yellow Ua Appearance clear Ua Specific [place] 1.020 Ua pH 6.0 Ua Protein trace Ua Glucose negative Ua Ketones negative Ua Blood negative Ua Leuk Esterase negative Ua Nitrites negative Ua Bilirubin negative Ua Urobilinogen 0.2 Test performed on Feb 28, 2019 10:25 Anion Gap 15.3 Globulin 2.0 gm/dL Impression: 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 Liver biopsy was negative showed biliary hamartoma Dysphagia, due to above discussed with patient his disease status, stage and treatment options. He has been offered neoadjuvant chemotherapy per [facility] protocol followed by Marco-e -Y esophagojejunostomy. Considering his age, performance status, significant weight loss, recommended FOLFOX; he is HER-2/sean negative. MSI is intact and PD-L1 is negative. Mr. Castaneda began his first cycle of FOLFOX on 05/03/2018. Follow-up CT scan of chest abdomen pelvis done after 6 doses of FOLFOX, on 08/02/2018 showed slight decrease in size of gastroesophageal mass and decrease in size of an adjacent lymphadenopathy. No evidence of distant metastases Mr Castaneda was evaluated by Dr. Malik at [facility] who recommended continue with 6 more cycles of chemotherapy with FOLFOX and then reevaluate him for surgery. He completed 12 cycles on chemotherapy on 10/19/2018. Diagnostic laproscopy, peritoneal biopsy x3, excision of the left hepatic lobe lesion, esophagogastroduodenoscopy, transversus abdominis plane block on 12/23/[address] Linton at [facility], [place], [place]. The operative reported the operative findings as: 1. widely metastatic medullary peritoneal carcinomatosis. 2. Left sided liver lesion which was resected and found to be a biliary hematoma. 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 Mr Castaneda went to [facility] for second opinion, and was evaluated surgeon who discussed about palliative surgery or hyperthermic intraperitoneal therapy and also saw Dr Urmila Barcenas who recommended ramucirumab and Taxol biweekly. Mr. Castaneda was returned to [facility] for the recommeneded with Cyramza and paclitaxel. He began his first dose on February 14, 2019. Plan: Discussed with patient regarding his labs white blood count 7.8 hemoglobin 16.9 hematocrit 52.1 platelets 126,000 CMP within limits and CT PET scan findings compared with CT scan of abdomen done on 04/02/2019 Clinically, patient is in [id number] distress due to constipation. His follow-up CT PET scan showed persistent, significant intra-abdominal disease and concern is his progressive constipation either due to narcotics or GI tract involvement with disease. Patient was advised to go to hospital for management including colonoscopy to rule out GI tract involvement but patient wants to try laxatives and also discuss with his surgeon in [facility] regarding colonoscopy and constipation management. Patient return to clinic after colonoscopy at that time we'll discuss about treatment options including either continue with cyramza/Taxol as there was a significant gap between initiation of treatment and CT scan of abdomen pelvis and comparison.And now CT PET scan shows stable disease but it was compared with CT scan of abdomen pelvis not with CT PET scan. Other option would be switching him to weekly docetaxel 20-30 mg/m??? and cisplatin 20 mg per square weekly day 1 and 8 then repeat every 21 days or Camptosar 65 mg/m??? plus cisplatin 30 mg/m??? day 1 and 8 and repeat every 21 days. Patient will think about and he will return to clinic after colonoscopy/surgical evaluation. Signed By: Angela Valladares M.D. <<Signature on File>>
--- NOTE | 2019-07-18 16:25 | ONC FU_ITS ---
Dr. Valladares follow up note Patient: Tavares Castaneda Unit #: [id number]: 1945 Dicatated By: Angela Valladares M.D.Date of Visit:Jul 18, 2019 Onc Med Follow-up/Prog Note History of Present Illness: Mr. Castaneda is a 73-year-old gentleman with history of progressive dysphagia for several months. In early February 2018 he developed some difficulty swallowing. He said he had food sticking under the sternum he would then have nausea and emesis. He did see a local surgeon who recommended EGD. On 03/07/2018 and he 100 went EGD with biopsy. A mass was found a distal esophagus/GEJ, no ulcer and gastritis. 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 HER-2/sean was pending. On 03/15/2018 he presented to [facility] with nausea vomiting and was admitted. A CT of the chest abdomen pelvis from 03/16/2018 showed frontal thickening of the distal esophagus/GEJ/ gastric cardia. There are also enlarged lymph nodes along the gastrohepatic ligament, but no distal disease. He reports an estimated 30 pounds weight loss since December 2017. On 03/28/2018 he underwent EUS at [place]. 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 Also reported it was a few malignant appearing lymph nodes in the celiac region. There is no sign of significant pathology in the pancreas or the common bile duct. The visualized portion of the liver was unremarkable as well as endosonographic images of the left adrenal gland. PET CT from 03/30/2019 at [facility] reports hypermetabolic gastroesophageal junction mass with associated wall thickening with an SUV of 6.6. Scattered mediastinal lymph nodes show mild increased FDG uptake, SUV 2.7, likely inflammatory . There were no abnormal focal areas of FDG uptake to suggest additional sites of metastatic disease. On 04/06/2018 Mr. Castaneda was seen by Dr. Kulwant Malik at [facility] for surgical consult. It was recommended that he pursue neoadjuvant chemotherapy and then return back to Dr. Malik for consideration of possible total gastrectomy with Marco-en Y esophago-jejunostomy and possible feeding tube. He was seen by Dr. Ortiz medical oncologist at [facility] and she offered him FOLFOX or FLOT regimen. HER-2/sean status is negative. MSI is intact and PDL 1 is negative.. Mr. Castaneda opted to do his treatment closer to home and was referred to us . He began his first cycle of modified FOLFOX on 05/03/2018. Follow-up CT scan of chest abdomen pelvis done after 6 doses of FOLFOX, on 08/02/2018 showed slight decrease in size of gastroesophageal mass and decrease in size of an adjacent lymphadenopathy. No evidence of distant metastases Mr Castaneda was evaluated by Dr. Malik at [facility] who recommended continue with 6 more cycles of chemotherapy with FOLFOX and then reevaluate him for surgery. He completed 12 cycles on chemotherapy on 10/19/2018. Diagnostic laproscopy, peritoneal biopsy x3, excision of the left hepatic lobe lesion, esophagogastroduodenoscopy, transversus abdominis plane block on 12/23/[address] Linton at [facility], [facility], [place]. The operative reported the operative findings as: 1. widely metastatic medullary peritoneal carcinomatosis. 2. Left sided liver lesion which was resected and found to be a biliary hematoma. 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 Mr Castaneda went to [facility] [place] for second opinion, and was evaluated surgeon who discussed about palliative surgery or hyperthermic intraperitoneal therapy and also saw Dr Urmila Barcenas who recommended ramucirumab and Taxol biweekly. Mr. Castaneda was returned to [facility] for the recommeneded treatment with Cyramza 8mg/kg day 1and paclitaxel 80 mg/m2 day 1 of a 14 day cycle. The paclitaxel was intentionally dose reduced due to pre-existing neuropathy. He began his first dose on February 14, 2019. Abdominal sonogram done on 03/21/2019 showed no evidence of ascites Was admitted to hospital on 04/03/2019 with right middle/lower lobe pneumonia treated with IV antibiotics responded well and was discharge home on oral antibiotics. Patient also underwent CT scan of chest abdomen pelvis on 04/02/2019 which showed complex pulmonary parenchymal abnormality likely infectious/inflammatory with a nodular complement warranting short-term follow-up. Mild right hilar lymphadenopathy could be reactive. Trace right pleural effusion. Moderate nonspecific abdominopelvic fat stranding and fascial thickening with small volume free fluid. cirrhotic morphology of the liver. Nonspecific adrenal thickening Patient was treated with oral antibiotic Zithromax for atypical coverage on 04/20/2019 and underwent follow-up chest x-ray on 05/04/2019 showed minimal residual vague abnormality in the right perihilar region that is improved from prior study done on 04/25/[address] PET scan was done on 07/06/2019 Showed stomach is incompletely distended with mural thickening and mild hypermetabolism along the gastric body, fundus which could represent idiopathic gastric cancer. Hypermetabolic gastrohepatic ligament lymph node concerning for michael metastasis no additional hypermetabolic lymph nodes identified. Increase in the size of hypermetabolic right adrenal deposit Development of small volume ascites with some subtle areas of omental nodularity concerning for peritoneal carcinomatosis. The portion of ascites could be hydrostatic from portal venous hypertension related to cirrhosis. Bilateral pleural fluid collection without hypermetabolism Patient underwent paracentesis on 07/12/2019 at [facility] in [facility], about 3 L fluid was removed and cytology came back positive for malignancy compatible with metastatic adenocarcinoma. Patient felt better after paracentesis. Came for follow-up, denies any specific complaints, no nausea no vomiting no fever no chills, no abdominal pain, abdominal is less distended after paracentesis. No shortness of breath. Now here to discuss about treatment options. Medications: Clindamycin HCl 1 Capsule (of 300 mg) Oral t.i.d. for 10 days, Latanoprost 1 drop(s) (of 0.005 %) Solution Ophthalmic daily, Lisinopril 1 Tablet (of 25 mg) Oral b.i.d., LORazepam 1 Tablet (of 0.5 mg) Oral at bedtime PRN, Metoprolol Tartrate 1 Tablet (of 50 mg) Oral b.i.d., Multivitamin Adults 1 Tablet Oral daily Allergies: Penicillins Review of Systems: Constitutional - Appetite is poor and weight is stable. No fever, chills, hot flashes, or night sweats. Energy level is poor, ENMT - Positive for sinus congestion/drainage. No mouth sores. Positive for sore throat, Hematologic/Lymphatic - No abnormal bruising or bleeding, Respiratory - Positive for shortness of breath and cough. No pleuritic pain or hemoptysis. Pt reports wheezing, Cardiovascular - No chest pains or palpitations, Gastrointestinal - Occasional nausea and vomiting. Occasional heartburn/indigestion. No diarrhea. Positive for constipation. No blood in the stool or black stools, Genitourinary (M) - No dysuria or hematuria. No urinary frequency. No urgency or incontinence, Musculoskeletal - No joint or bone pain, Neurologic - No headache or dizziness. Pt reports numbness/tingling in his hands, Psychiatric - No anxiety or depression. No insomnia. Vital Signs: Performed on Jul 18, 2019 13:54 Height - 66.00 in Weight - 175.0 lbs (LOW) BSA - 1.89 sq.m BMI - 28.25 Temperature - 97.2 F (LOW) Pulse - 81 /min Respiration - 17 /min BP - 122/79 mm(hg) O2 Sat - 89 % (LOW) Pain - 0 Performance Status: 0 - Fully active, able to carry on all predisease activities without restrictions. (ECOG) Physical Examination: ENMT - No oral exudates, ulcers, masses, thrush or mucositis. Oropharynx clear. Tongue normal, Respiratory - decreased breath sound at bases otherwise clear, Cardiovascular - Regular rate and rhythm of heart, Abdomen - Non-tender, non-distended, Good bowel sounds. No guarding or rebound tenderness. No pulsatile masses, Extremities - trace edema bilaterally. Lab/Imaging: Test performed on Jul 07, 2019 09:30 Glucose 143 mg/dL BUN 20 mg/dL Creatinine 0.95 mg/dL Cr Clearance (Est) 80.53 mL/min Sodium 142 mmol/L Potassium 3.8 mmol/L Chloride 96 mmol/L CO2 35 mmol/L Calcium 9.0 mg/dL Protein, Total 6.8 g/dL Albumin 4.1 g/dL Bilirubin, Total 0.4 mg/dL Alkaline Phosphatase 51 IU/L AST (SGOT) 20 IU/L ALT (SGPT) 17 IU/L WBC 7.8 10^9/L RBC 5.51 10^12/L HGB 16.9 g/dL HCT 52.1 % MCV 94.6 fl MCH 30.7 pg MCHC 32.4 g/dL RDW 15.2 % Platelet Count 126 10^9/L MPV 11.0 fL Neutrophils (Gran) 5.69 10^9/L Lymphocytes 1.18 10^9/L Monocytes 0.76 10^9/L Eosinophils 0.06 10^9/L Basophils 0.04 10^9/L Manual Lymphocytes 15 % Manual Monocytes 10 % Manual Eosinophils 1 % Manual Basophils 1 % Test performed on May 25, 2019 13:12 Neutrophil % 82.2 % Lymphocyte % 16.1 % Monocyte % 1.3 % Eosinophil % 0.0 % Basophils % 0.0 % Test performed on Mar 13, 2019 09:22 Magnesium 2.3 mg/dL Ua Color yellow Ua Appearance clear Ua Specific Fabius 1.020 Ua pH 6.0 Ua Protein trace Ua Glucose negative Ua Ketones negative Ua Blood negative Ua Leuk Esterase negative Ua Nitrites negative Ua Bilirubin negative Ua Urobilinogen 0.2 Test performed on Feb 28, 2019 10:25 Anion Gap 15.3 Globulin 2.0 gm/dL Impression: 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 Liver biopsy was negative showed biliary hamartoma Dysphagia, due to above discussed with patient his disease status, stage and treatment options. He has been offered neoadjuvant chemotherapy per [facility] protocol followed by Marco-e -Y esophagojejunostomy. Considering his age, performance status, significant weight loss, recommended FOLFOX; he is HER-2/sean negative. MSI is intact and PD-L1 is negative. Mr. Castaneda began his first cycle of FOLFOX on 05/03/2018. Follow-up CT scan of chest abdomen pelvis done after 6 doses of FOLFOX, on 08/02/2018 showed slight decrease in size of gastroesophageal mass and decrease in size of an adjacent lymphadenopathy. No evidence of distant metastases Mr Castaneda was evaluated by Dr. Malik at [facility] who recommended continue with 6 more cycles of chemotherapy with FOLFOX and then reevaluate him for surgery. He completed 12 cycles on chemotherapy on 10/19/2018. Diagnostic laproscopy, peritoneal biopsy x3, excision of the left hepatic lobe lesion, esophagogastroduodenoscopy, transversus abdominis plane block on 12/23/[address] Linton at [facility], [place], [place]. The operative reported the operative findings as: 1. widely metastatic medullary peritoneal carcinomatosis. 2. Left sided liver lesion which was resected and found to be a biliary hematoma. 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 Mr Castaneda went to [facility] [place] for second opinion, and was evaluated surgeon who discussed about palliative surgery or hyperthermic intraperitoneal therapy and also saw Dr Urmila Barcenas who recommended ramucirumab and Taxol biweekly. Mr. Castaneda was returned to [facility] for the recommeneded with Cyramza and paclitaxel. He began his first dose on February 14, 2019. Plan: Discussed with patient regarding his disease status and treatment option, recently he underwent paracentesis on 07/12/2019 and cytology came back positive for malignancy consistent with metastatic adenocarcinoma. Interestingly his CT PET scan showed small ascites. At this point, treatment options including palliative chemotherapy with weekly cisplatin 20 mg/Taxotere 20-30 mg e.g. day 1 and 8 then repeat every 21 days was discussed and other option including hospice care was also discussed patient is leaning towards palliative chemotherapy. All the side effect possible benefits associated with cisplatin/Taxotere were discussed in detail including but not limited to bone marrow suppression, nausea vomiting, renal/ototoxicity, hair loss but less likely were mentioned further teaching will on by chemotherapy nurse. We will obtain approval from his insurance prior to the treatment. And he will return to clinic 1 week after chemotherapy is initiated with CBC CMP. Also consider NTRK gene status on malignant ascitic fluid Also discuss about ascites management, patient may need frequent paracentesis. Signed By: Angela Valladares M.D. <<Signature on File>>
== END 2019-07-25 23:59 | disposition home or self-care (01) ==
LOC: ONCMED 05:38
PROVIDERS: PCP Family Medicine; Visit Provider Internal Medicine Hematology & Oncology
DX: C16.0 Malignant neoplasm of cardia (principal); R18.0 Malignant ascites; C78.6 Secondary malignant neoplasm of retroperitoneum and peritoneum; K76.89 Other specified diseases of liver; K59.00 Constipation, unspecified; F17.210 Nicotine dependence, cigarettes, uncomplicated; R13.10 Dysphagia, unspecified; Z79.899 Other long term (current) drug therapy; Z87.01 Personal history of pneumonia (recurrent); Z92.21 Personal history of antineoplastic chemotherapy
CPT/HCPCS: 99214

== ENCOUNTER 2019-08-10 06:48 | Outpatient (RCR) | payer MEDICARE, SELFPAY ==
[2019-07-26 09:21] LABS: Hematocrit 43.1 % (42.0-52.0); Lymphocytes # 0.4 10^3/uL (0.8-4.8); Lymphocytes % 5.3 %; Mean Corpuscular HGB Conc 32.5 g/dL (30.0-36.0); Mean Corpuscular Hemoglobin 30.4 pg (28.0-34.0); Mean Corpuscular Volume 93.7 fL (80-94); Mean Platelet Volume 11.1 fL (7.4-10.4); Monocytes # 0.6 10^3/uL (0.2-0.9); Monocytes % 8.4 %; Neutrophils # 5.8 10^3/uL (1.8-7.7); Neutrophils % 85.9 %; Nucleated Red Blood Cells % 0 %; Platelet Count 245 10^3/cmm (130-400); Red Cell Distribution Width 13.6 % (12.1-15.1); White Blood Count 6.8 10^3/uL (4.0-10.0)
[2019-07-26 09:33] LABS: Alanine Aminotransferase 21 U/L (0-41); Albumin Level 3.3 g/dL (3.5-5.2); Alkaline Phosphatase 53 IU/L (40-130); Anion Gap 15.4 (5-19); Aspartate Amino Transferase 25 U/L (0-40); Blood Urea Nitrogen 35 mg/dL (8-23); Calcium 8.6 mg/dL (8.5-10.5); Carbon Dioxide 36 mmol/L (22-29); Chloride 89 mmol/L (98-107); Globulin 2.5 g/dL (1.3-4.6); Glucose 145 mg/dL (65-115); Osmolality Calculated 284 mOsm/kg (285-295); Potassium 3.4 mmol/L (3.5-5.1); Sodium 137 mmol/L (136-145); Total Bilirubin 0.2 mg/dL (0.15-1.2); Total Protein 5.8 g/dL (6.6-8.7)
[2019-08-01 09:42] LABS: Basophils % 0.1 %; Eosinophils % 0.1 %; Hematocrit 42.5 % (42.0-52.0); Hemoglobin 14.2 g/dL (11.7-16.6); Lymphocytes # 0.6 10^3/uL (0.8-4.8); Lymphocytes % 7.7 %; Mean Corpuscular HGB Conc 33.4 g/dL (30.0-36.0); Mean Corpuscular Hemoglobin 31.1 pg (28.0-34.0); Mean Platelet Volume 10.9 fL (7.4-10.4); Monocytes # 0.9 10^3/uL (0.2-0.9); Monocytes % 12.1 %; Neutrophils # 6.1 10^3/uL (1.8-7.7); Neutrophils % 79.2 %; Nucleated Red Blood Cells % 0 %; Platelet Count 220 10^3/cmm (130-400); Red Blood Count 4.57 10^6/uL (4.1-5.3); Red Cell Distribution Width 13.3 % (12.1-15.1); White Blood Count 7.8 10^3/uL (4.0-10.0)
[2019-08-01 09:58] LABS: Alanine Aminotransferase 29 U/L (0-41); Alkaline Phosphatase 74 IU/L (40-130); Anion Gap 15.9 (5-19); Aspartate Amino Transferase 26 U/L (0-40); Blood Urea Nitrogen 29 mg/dL (8-23); Calcium 8.6 mg/dL (8.5-10.5); Carbon Dioxide 34 mmol/L (22-29); Chloride 91 mmol/L (98-107); Globulin 2.7 g/dL (1.3-4.6); Glucose 111 mg/dL (65-115); Osmolality Calculated 282 mOsm/kg (285-295); Potassium 3.9 mmol/L (3.5-5.1); Sodium 137 mmol/L (136-145); Total Bilirubin 0.2 mg/dL (0.15-1.2); Total Protein 5.7 g/dL (6.6-8.7)
[2019-08-01] MEDS: sodium chloride 0.9% 250 ML 75 ML IV (12:20)
--- NOTE | 2019-08-01 13:05 | ONC FU_ITS ---
Dr. Valladares follow up note Patient: Tavares Castaneda Unit #: [id number]: 1945 Dicatated By: Angela Valladares M.D.Date of Visit:Aug 01, 2019 Onc Med Follow-up/Prog Note History of Present Illness: Mr. Castaneda is a 73-year-old gentleman with history of progressive dysphagia for several months. In early February 2018 he developed some difficulty swallowing. He said he had food sticking under the sternum he would then have nausea and emesis. He did see a local surgeon who recommended EGD. On 03/07/2018 and he 100 went EGD with biopsy. A mass was found a distal esophagus/GEJ, no ulcer and gastritis. 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 HER-2/sean was pending. On 03/15/2018 he presented to [facility] with nausea vomiting and was admitted. A CT of the chest abdomen pelvis from 03/16/2018 showed frontal thickening of the distal esophagus/GEJ/ gastric cardia. There are also enlarged lymph nodes along the gastrohepatic ligament, but no distal disease. He reports an estimated 30 pounds weight loss since December 2017. On 03/28/2018 he underwent EUS at [place]. 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 Also reported it was a few malignant appearing lymph nodes in the celiac region. There is no sign of significant pathology in the pancreas or the common bile duct. The visualized portion of the liver was unremarkable as well as endosonographic images of the left adrenal gland. PET CT from 03/30/2019 at [facility] reports hypermetabolic gastroesophageal junction mass with associated wall thickening with an SUV of 6.6. Scattered mediastinal lymph nodes show mild increased FDG uptake, SUV 2.7, likely inflammatory . There were no abnormal focal areas of FDG uptake to suggest additional sites of metastatic disease. On 04/06/2018 Mr. Castaneda was seen by Dr. Kulwant Malik at [facility] for surgical consult. It was recommended that he pursue neoadjuvant chemotherapy and then return back to Dr. Malik for consideration of possible total gastrectomy with Marco-en Y esophago-jejunostomy and possible feeding tube. He was seen by Dr. Ortiz medical oncologist at [facility] and she offered him FOLFOX or FLOT regimen. HER-2/sean status is negative. MSI is intact and PDL 1 is negative.. Mr. Castaneda opted to do his treatment closer to home and was referred to us . He began his first cycle of modified FOLFOX on 05/03/2018. Follow-up CT scan of chest abdomen pelvis done after 6 doses of FOLFOX, on 08/02/2018 showed slight decrease in size of gastroesophageal mass and decrease in size of an adjacent lymphadenopathy. No evidence of distant metastases Mr Castaneda was evaluated by Dr. Malik at [facility] who recommended continue with 6 more cycles of chemotherapy with FOLFOX and then reevaluate him for surgery. He completed 12 cycles on chemotherapy on 10/19/2018. Diagnostic laproscopy, peritoneal biopsy x3, excision of the left hepatic lobe lesion, esophagogastroduodenoscopy, transversus abdominis plane block on 12/23/[address] Linton at [facility], [facility], [place]. The operative reported the operative findings as: 1. widely metastatic medullary peritoneal carcinomatosis. 2. Left sided liver lesion which was resected and found to be a biliary hematoma. 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 Mr Castaneda went to [facility] for second opinion, and was evaluated surgeon who discussed about palliative surgery or hyperthermic intraperitoneal therapy and also saw Dr Urmila Barcenas who recommended ramucirumab and Taxol biweekly. Mr. Castaneda was [facility] recommeneded treatment with Cyramza 8mg/kg day 1and paclitaxel 80 mg/m2 day 1 of a 14 day cycle. The paclitaxel was intentionally dose reduced due to pre-existing neuropathy. He began his first dose on February 14, 2019. Abdominal sonogram done on 03/21/2019 showed no evidence of ascites Was admitted to hospital on 04/03/2019 with right middle/lower lobe pneumonia treated with IV antibiotics responded well and was discharge home on oral antibiotics. Patient also underwent CT scan of chest abdomen pelvis on 04/02/2019 which showed complex pulmonary parenchymal abnormality likely infectious/inflammatory with a nodular complement warranting short-term follow-up. Mild right hilar lymphadenopathy could be reactive. Trace right pleural effusion. Moderate nonspecific abdominopelvic fat stranding and fascial thickening with small volume free fluid. cirrhotic morphology of the liver. Nonspecific adrenal thickening Patient was treated with oral antibiotic Zithromax for atypical coverage on 04/20/2019 and underwent follow-up chest x-ray on 05/04/2019 showed minimal residual vague abnormality in the right perihilar region that is improved from prior study done on 04/25/[address] PET scan was done on 07/06/2019 Showed stomach is incompletely distended with mural thickening and mild hypermetabolism along the gastric body, fundus which could represent idiopathic gastric cancer. Hypermetabolic gastrohepatic ligament lymph node concerning for michael metastasis no additional hypermetabolic lymph nodes identified. Increase in the size of hypermetabolic right adrenal deposit Development of small volume ascites with some subtle areas of omental nodularity concerning for peritoneal carcinomatosis. The portion of ascites could be hydrostatic from portal venous hypertension related to cirrhosis. Bilateral pleural fluid collection without hypermetabolism Patient underwent paracentesis on 07/12/2019 at [facility] in [facility], about 3 L fluid was removed and cytology came back positive for malignancy compatible with metastatic adenocarcinoma. Patient felt better after paracentesis. Recurrent ascites, requiring multiple paracentesis Came for follow-up, complaining of abdominal fullness and recently underwent Paracentesis and as per family about 4 L fluid was removed. Patient developed postprocedure abdominal pain, now resolved. But complaining of decrease urination, has history of benign prostate hypertrophy, in the past yesterday Flomax with good results and he used to do self-catheterization. Also complaining of constipation. And eager to take chemotherapy to slow down ascites. Also complaining of poor appetite and indigestion. Medications: Clindamycin HCl 1 Capsule (of 300 mg) Oral t.i.d. for 10 days, Latanoprost 1 drop(s) (of 0.005 %) Solution Ophthalmic daily, Lisinopril 1 Tablet (of 25 mg) Oral b.i.d., LORazepam 1 Tablet (of 0.5 mg) Oral at bedtime PRN, Metoprolol Tartrate 1 Tablet (of 50 mg) Oral b.i.d., Multivitamin Adults 1 Tablet Oral daily Allergies: Penicillins Review of Systems: Constitutional - Appetite is poor and weight is stable. No fever, chills, hot flashes, or night sweats. Energy level is poor, ENMT - Positive for sinus congestion/drainage. No mouth sores. Positive for sore throat, Hematologic/Lymphatic - No abnormal bruising or bleeding, Respiratory - Positive for shortness of breath and cough. No pleuritic pain or hemoptysis. Pt reports wheezing, Cardiovascular - No chest pains or palpitations, Gastrointestinal - Occasional nausea and vomiting. Occasional heartburn/indigestion. No diarrhea. Positive for constipation. No blood in the stool or black stools, Genitourinary (M) - No dysuria or hematuria. No urinary frequency. No urgency or incontinence, Musculoskeletal - No joint or bone pain, Neurologic - No headache or dizziness. Pt reports numbness/tingling in his hands, Psychiatric - No anxiety or depression. No insomnia. Vital Signs: Performed on Aug 01, 2019 11:15 Height - 66.00 in Weight - 166.4 lbs (LOW) BSA - 1.85 sq.m BMI - 26.86 Temperature - 97.5 F (LOW) Pulse - 82 /min Respiration - 24 /min BP - 106/73 mm(hg) O2 Sat - 90 % (LOW) Pain - 6 Performance Status: 2 - Ambulatory/capable of all self-care, unable to perform any work activities. Up and about more than 50% of waking hours. (ECOG) Physical Examination: ENMT - Sinuses are nontender. No oral exudates, ulcers, masses, thrush or mucositis. Oropharynx clear. Tongue normal, Respiratory - poor air entry, Cardiovascular - Regular rate and rhythm of heart, Abdomen - Non-tender, but distended with ascites, Extremities - 1+ edema. Lab/Imaging: Test performed on Jul 26, 2019 09:10 Sodium 137 mmol/L Potassium 3.4 mmol/L Chloride 89 mmol/L CO2 36 mmol/L Anion Gap 15.4 BUN 35 mg/dL Creatinine 1.2 mg/dL Cr Clearance (Est) 63.3900 mL/min Glucose 145 mg/dL Calcium 8.6 mg/dL Protein, Total 5.8 g/dL Albumin 3.3 g/dL Globulin 2.5 g/dL Bilirubin, Total 0.2 mg/dL ALT (SGPT) 21 U/L AST (SGOT) 25 U/L Alkaline Phosphatase 53 IU/L WBC 6.8 10 3/uL RBC 4.60 10 6/uL HGB 14.0 g/dL HCT 43.1 % MCV 93.7 fL MCH 30.4 pg MCHC 32.5 g/dL RDW 13.6 % Platelet Count 245 10 3/cmm MPV 11.1 fL Neutrophils 5.8 10 3/uL Lymphocytes 0.4 10 3/uL Monocytes 0.6 10 3/uL Eosinophils 0.0 10 3/uL Basophils 0.0 10 3/uL Neutrophil % 85.9 % Lymphocyte % 5.3 % Monocyte % 8.4 % Eosinophil % 0.0 % Basophils % 0.0 % Test performed on Jul 07, 2019 09:30 Manual Lymphocytes 15 % Manual Monocytes 10 % Manual Eosinophils 1 % Manual Basophils 1 % Test performed on Mar 13, 2019 09:22 Magnesium 2.3 mg/dL Ua Color yellow Ua Appearance clear Ua Specific [place] 1.020 Ua pH 6.0 Ua Protein trace Ua Glucose negative Ua Ketones negative Ua Blood negative Ua Leuk Esterase negative Ua Nitrites negative Ua Bilirubin negative Ua Urobilinogen 0.2 Impression: 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 Liver biopsy was negative showed biliary hamartoma Dysphagia, due to above discussed with patient his disease status, stage and treatment options. He has been offered neoadjuvant chemotherapy per [facility] protocol followed by Marco-e -Y esophagojejunostomy. Considering his age, performance status, significant weight loss, recommended FOLFOX; he is HER-2/sean negative. MSI is intact and PD-L1 is negative. Mr. Castaneda began his first cycle of FOLFOX on 05/03/2018. Follow-up CT scan of chest abdomen pelvis done after 6 doses of FOLFOX, on 08/02/2018 showed slight decrease in size of gastroesophageal mass and decrease in size of an adjacent lymphadenopathy. No evidence of distant metastases Mr Castaneda was evaluated by Dr. Malik at [facility] who recommended continue with 6 more cycles of chemotherapy with FOLFOX and then reevaluate him for surgery. He completed 12 cycles on chemotherapy on 10/19/2018. Diagnostic laproscopy, peritoneal biopsy x3, excision of the left hepatic lobe lesion, esophagogastroduodenoscopy, transversus abdominis plane block on 12/23/[address] Linton at [facility], [place], [place]. The operative reported the operative findings as: 1. widely metastatic medullary peritoneal carcinomatosis. 2. Left sided liver lesion which was resected and found to be a biliary hematoma. 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 Mr Castaneda went to [facility] for second opinion, and was evaluated surgeon who discussed about palliative surgery or hyperthermic intraperitoneal therapy and also saw Dr Urmila Barcenas who recommended ramucirumab and Taxol biweekly. Mr. Castaneda was [facility] the recommeneded with Cyramza and paclitaxel. He began his first dose on February 14, 2019. Plan: Discussed with patient regarding his labs white blood count 7.8 hemoglobin 14.2 crit 42.5 platelets 220,000 CMP within normal limits Clinically, patient is doing reasonably well, now in mild distress due to persistent ascites which is multifactorial including due to carcinomatosis and patient also has underlying cirrhosis of the liver. At this point treatment options including supportive care, hospice care and palliative therapy and referrel to tertiary care center was discussed. Patient was inquiring regarding intraperitoneal therapy, so case was discussed with Dr. Angelic Andrade, surgeon in [place]. As per her recommendation, patient should be referred to [facility] for protocol for intraperitoneal therapy . But she can see him for permanent cath placement to facilitate ascites drainage or she can review his case see if any other option including intraperitoneal therapy to minimize fluid accumulation. Patient and his think about in the meantime , patient opted for palliative chemotherapy, initial plan was to do low-dose cisplatin/docetaxel but now considering recurrent ascites cannot be would not consider cisplatin and other try weekly docetaxel and if tolerated may add carboplatin. In the meantime discussed with alone regarding hospice care and she will discussed with patient and when he return to clinic in 1 week, that time we'll discuss further,. As far as constipation is concern, patient was advised to try milk of magnesia/prune juice combination and for urinary retention, we'll give him prescription for Flomax and patient was requesting prescription for self-catheterization catheter but we don't know the size, and we'll consider referrel to Dr. Hernandez for evaluation, patient agreed. Return to clinic in 1 week with CBC CMP and if tolerated, low-dose docetaxel, for the next treatment and plan to give him docetaxel day 1 and 8 and day repeat every 21 days, unless patient decides about hospice care Signed By: Angela Valladares M.D. <<Signature on File>>
[2019-08-01] MEDS: pantoprazole 40 mg SDV IV (13:33)
[2019-08-01] MEDS: alum-mag-hydroxide-sime 30 mL UDC PO (13:35)
[2019-08-09 17:09] LABS: Basophils % 0.1 %; Eosinophils % 0.1 %; Hematocrit 42.8 % (42.0-52.0); Hemoglobin 13.8 g/dL (11.7-16.6); Lymphocytes # 0.5 10^3/uL (0.8-4.8); Lymphocytes % 3.8 %; Mean Corpuscular HGB Conc 32.2 g/dL (30.0-36.0); Mean Corpuscular Hemoglobin 30.6 pg (28.0-34.0); Mean Corpuscular Volume 94.9 fL (80-94); Mean Platelet Volume 11.9 fL (7.4-10.4); Monocytes # 0.7 10^3/uL (0.2-0.9); Monocytes % 5.3 %; Neutrophils # 11.1 10^3/uL (1.8-7.7); Neutrophils % 89.8 %; Nucleated Red Blood Cells % 0 %; Platelet Count 196 10^3/cmm (130-400); Red Blood Count 4.51 10^6/uL (4.1-5.3); Red Cell Distribution Width 13.5 % (12.1-15.1); White Blood Count 12.4 10^3/uL (4.0-10.0)
[2019-08-09 18:31] LABS: Alanine Aminotransferase 22 U/L (0-41); Albumin Level 3.2 g/dL (3.5-5.2); Alkaline Phosphatase 72 IU/L (40-130); Anion Gap 14.4 (5-19); Aspartate Amino Transferase 26 U/L (0-40); Blood Urea Nitrogen 30 mg/dL (8-23); Calcium 8.9 mg/dL (8.5-10.5); Carbon Dioxide 35 mmol/L (22-29); Chloride 89 mmol/L (98-107); Globulin 2.4 g/dL (1.3-4.6); Glucose 121 mg/dL (65-115); Osmolality Calculated 278 mOsm/kg (285-295); Potassium 3.4 mmol/L (3.5-5.1); Sodium 135 mmol/L (136-145); Total Bilirubin 0.2 mg/dL (0.15-1.2); Total Protein 5.6 g/dL (6.6-8.7)
[2019-08-10] MEDS: sodium chloride 0.9% 250 ML 75 ML IV (13:53)
[2019-08-10 14:50] VITALS: RESP 16
[2019-08-10] MEDS: oxyCODONE-APAP 5-325 mg Tablet 1 TAB PO (14:50)
--- NOTE | 2019-08-14 18:28 | ONC FU_ITS ---
Dr. Valladares follow up note Patient: Tavares Castaneda Unit #: [id number]: 1945 Dicatated By: Angela Valladares M.D.Date of Visit:Aug 10, 2019 Onc Med Follow-up/Prog Note History of Present Illness: Mr. Castaneda is a 73-year-old gentleman with history of progressive dysphagia for several months. In early February 2018 he developed some difficulty swallowing. He said he had food sticking under the sternum he would then have nausea and emesis. He did see a local surgeon who recommended EGD. On 03/07/2018 and he 100 went EGD with biopsy. A mass was found a distal esophagus/GEJ, no ulcer and gastritis. 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 HER-2/sean was pending. On 03/15/2018 he presented to [facility] with nausea vomiting and was admitted. A CT of the chest abdomen pelvis from 03/16/2018 showed frontal thickening of the distal esophagus/GEJ/ gastric cardia. There are also enlarged lymph nodes along the gastrohepatic ligament, but no distal disease. He reports an estimated 30 pounds weight loss since December 2017. On 03/28/2018 he underwent EUS at [place]. 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 Also reported it was a few malignant appearing lymph nodes in the celiac region. There is no sign of significant pathology in the pancreas or the common bile duct. The visualized portion of the liver was unremarkable as well as endosonographic images of the left adrenal gland. PET CT from 03/30/2019 at [facility] reports hypermetabolic gastroesophageal junction mass with associated wall thickening with an SUV of 6.6. Scattered mediastinal lymph nodes show mild increased FDG uptake, SUV 2.7, likely inflammatory . There were no abnormal focal areas of FDG uptake to suggest additional sites of metastatic disease. On 04/06/2018 Mr. Castaneda was seen by Dr. Kulwant Malik at [facility] for surgical consult. It was recommended that he pursue neoadjuvant chemotherapy and then return back to Dr. Malik for consideration of possible total gastrectomy with Mraco-en Y esophago-jejunostomy and possible feeding tube. He was seen by Dr. Ortiz medical oncologist at [facility] and she offered him FOLFOX or FLOT regimen. HER-2/sean status is negative. MSI is intact and PDL 1 is negative.. Mr. Castaneda opted to do his treatment closer to home and was referred to us . He began his first cycle of modified FOLFOX on 05/03/2018. Follow-up CT scan of chest abdomen pelvis done after 6 doses of FOLFOX, on 08/02/2018 showed slight decrease in size of gastroesophageal mass and decrease in size of an adjacent lymphadenopathy. No evidence of distant metastases Mr Castaneda was evaluated by Dr. Malik at [facility] who recommended continue with 6 more cycles of chemotherapy with FOLFOX and then reevaluate him for surgery. He completed 12 cycles on chemotherapy on 10/19/2018. Diagnostic laproscopy, peritoneal biopsy x3, excision of the left hepatic lobe lesion, esophagogastroduodenoscopy, transversus abdominis plane block on 12/23/[address] Linton at [facility], [facility], [place]. The operative reported the operative findings as: 1. widely metastatic medullary peritoneal carcinomatosis. 2. Left sided liver lesion which was resected and found to be a biliary hematoma. 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 Mr Castaneda went to [facility] for [facility] opinion, and was evaluated surgeon who discussed about palliative surgery or hyperthermic intraperitoneal therapy and also saw Dr Urmila Barcenas who recommended ramucirumab and Taxol biweekly. Mr. Castaneda was returned to [facility] for the recommeneded treatment with Cyramza 8mg/kg day 1and paclitaxel 80 mg/m2 day 1 of a 14 day cycle. The paclitaxel was intentionally dose reduced due to pre-existing neuropathy. He began his first dose on February 14, 2019. Abdominal sonogram done on 03/21/2019 showed no evidence of ascites Was admitted to hospital on 04/03/2019 with right middle/lower lobe pneumonia treated with IV antibiotics responded well and was discharge home on oral antibiotics. Patient also underwent CT scan of chest abdomen pelvis on 04/02/2019 which showed complex pulmonary parenchymal abnormality likely infectious/inflammatory with a nodular complement warranting short-term follow-up. Mild right hilar lymphadenopathy could be reactive. Trace right pleural effusion. Moderate nonspecific abdominopelvic fat stranding and fascial thickening with small volume free fluid. cirrhotic morphology of the liver. Nonspecific adrenal thickening Patient was treated with oral antibiotic Zithromax for atypical coverage on 04/20/2019 and underwent follow-up chest x-ray on 05/04/2019 showed minimal residual vague abnormality in the right perihilar region that is improved from prior study done on 04/25/[address] PET scan was done on 07/06/2019 Showed stomach is incompletely distended with mural thickening and mild hypermetabolism along the gastric body, fundus which could represent idiopathic gastric cancer. Hypermetabolic gastrohepatic ligament lymph node concerning for michael metastasis no additional hypermetabolic lymph nodes identified. Increase in the size of hypermetabolic right adrenal deposit Development of small volume ascites with some subtle areas of omental nodularity concerning for peritoneal carcinomatosis. The portion of ascites could be hydrostatic from portal venous hypertension related to cirrhosis. Bilateral pleural fluid collection without hypermetabolism Patient underwent paracentesis on 07/12/2019 at [facility] in [facility], about 3 L fluid was removed and cytology came back positive for malignancy compatible with metastatic adenocarcinoma. Patient felt better after paracentesis. Recurrent ascites, requiring multiple paracentesis Came for follow-up, denies any specific complaint except feeling thirsty, as his surgeon has advised him not to drink too much water because of risk of worsening of ascites. Patient said his did discuss with Dr. Izquierdo, surgeon in [place] regarding permacath placement but his surgeon in [facility] is not in favor of permacath . Patient wants to go to surgeon in [place] for future paracentesis. No fever or chills, no nausea or vomiting but abdominal fullness, and early fullness, poor appetite but no diarrhea or constipation. No lightheadedness or dizziness. Tolerated first dose of low-dose docetaxel well. Medications: Clindamycin HCl 1 Capsule (of 300 mg) Oral t.i.d. for 10 days, Latanoprost 1 drop(s) (of 0.005 %) Solution Ophthalmic daily, Lisinopril 1 Tablet (of 25 mg) Oral b.i.d., LORazepam 1 Tablet (of 0.5 mg) Oral at bedtime PRN, Metoprolol Tartrate 1 Tablet (of 50 mg) Oral b.i.d., Multivitamin Adults 1 Tablet Oral daily Allergies: Penicillins Review of Systems: Review of Systems is not available for this patient. Vital Signs: Performed on Aug 10, 2019 12:34 Height - 66.00 in Weight - 160.8 lbs (LOW) BSA - 1.82 sq.m BMI - 25.95 Temperature - 97.5 F (LOW) Pulse - 79 /min Respiration - 16 /min BP - 90/63 mm(hg) O2 Sat - 95 % (LOW) Pain - 0 Performance Status: 2 - Ambulatory/capable of all self-care, unable to perform any work activities. Up and about more than 50% of waking hours. (ECOG) Physical Examination: ENMT - no mouth sores or thrush, Respiratory - poor air entry, decreased breath sounds at the bases, Cardiovascular - Regular rate and rhythm of heart, Abdomen - distended, fluid shift present, distant bowel sounds, nontender, no rebound tenderness, Extremities - 1+ edema bilaterally. Lab/Imaging: Test performed on Aug 09, 2019 14:20 Sodium 135 mmol/L Potassium 3.4 mmol/L Chloride 89 mmol/L CO2 35 mmol/L Anion Gap 14.4 BUN 30 mg/dL Creatinine 1.1 mg/dL Cr Clearance (Est) 69.1600 mL/min Glucose 121 mg/dL Calcium 8.9 mg/dL Protein, Total 5.6 g/dL Albumin 3.2 g/dL Globulin 2.4 g/dL Bilirubin, Total 0.2 mg/dL ALT (SGPT) 22 U/L AST (SGOT) 26 U/L Alkaline Phosphatase 72 IU/L WBC 12.4 10 3/uL RBC 4.51 10 6/uL HGB 13.8 g/dL HCT 42.8 % MCV 94.9 fL MCH 30.6 pg MCHC 32.2 g/dL RDW 13.5 % Platelet Count 196 10 3/cmm MPV 11.9 fL Neutrophils 11.1 10 3/uL Lymphocytes 0.5 10 3/uL Monocytes 0.7 10 3/uL Eosinophils 0.0 10 3/uL Basophils 0.0 10 3/uL Neutrophil % 89.8 % Lymphocyte % 3.8 % Monocyte % 5.3 % Eosinophil % 0.1 % Basophils % 0.1 % Test performed on Jul 07, 2019 09:30 Manual Lymphocytes 15 % Manual Monocytes 10 % Manual Eosinophils 1 % Manual Basophils 1 % Test performed on Mar 13, 2019 09:22 Magnesium 2.3 mg/dL Ua Color yellow Ua Appearance clear Ua Specific Check 1.020 Ua pH 6.0 Ua Protein trace Ua Glucose negative Ua Ketones negative Ua Blood negative Ua Leuk Esterase negative Ua Nitrites negative Ua Bilirubin negative Ua Urobilinogen 0.2 Impression: 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 Liver biopsy was negative showed biliary hamartoma Dysphagia, due to above discussed with patient his disease status, stage and treatment options. He has been offered neoadjuvant chemotherapy per [facility] protocol followed by Marco-e -Y esophagojejunostomy. Considering his age, performance status, significant weight loss, recommended FOLFOX; he is HER-2/sean negative. MSI is intact and PD-L1 is negative. Mr. Castaneda began his first cycle of FOLFOX on 05/03/2018. Follow-up CT scan of chest abdomen pelvis done after 6 doses of FOLFOX, on 08/02/2018 showed slight decrease in size of gastroesophageal mass and decrease in size of an adjacent lymphadenopathy. No evidence of distant metastases Mr Castaneda was evaluated by Dr. Malik at [facility] who recommended continue with 6 more cycles of chemotherapy with FOLFOX and then reevaluate him for surgery. He completed 12 cycles on chemotherapy on 10/19/2018. Diagnostic laproscopy, peritoneal biopsy x3, excision of the left hepatic lobe lesion, esophagogastroduodenoscopy, transversus abdominis plane block on 12/23/[address] Linton at [facility], [place], [place]. The operative reported the operative findings as: 1. widely metastatic medullary peritoneal carcinomatosis. 2. Left sided liver lesion which was resected and found to be a biliary hematoma. 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 Mr Castaneda went to [facility] for second opinion, and was evaluated surgeon who discussed about palliative surgery or hyperthermic intraperitoneal therapy and also saw Dr Urmila Barcenas who recommended ramucirumab and Taxol biweekly. Mr. Castaneda was returned to [facility] for the recommeneded with Cyramza and paclitaxel. He began his first dose on February 14, 2019. Plan: Discussed with patient regarding his labs white blood count 12.4 hemoglobin 13.8 crit 42.8 platelets 196,000 CMP within normal limits Clinically, patient is doing reasonably well, now being treated with palliative chemotherapy e.g. low-dose weekly docetaxel, tolerated first dose well. His lab workup looks reasonable and patient is feeling reasonably well so we'll proceed with next weekly dose of docetaxel today and then he will return to clinic in 1 week.with CBC CMP. Patient was advised to maintain good hydration and also suggested to discuss with Dr. Izquierdo for permacath but patient wants to wait and watch and if chemotherapy did not control his ascites then he may consider permacath otherwise he wants to use surgeon in [place] for future paracentesis. We will refer him to local surgeon for evaluation.patient was advised in case, he has any new symptoms, or problem he needed to call us immediately. Signed By: Angela Valladares M.D. <<Signature on File>>
== END 2019-08-24 23:59 | disposition home or self-care (01) ==
LOC: ONCMED 06:48
PROVIDERS: PCP Family Medicine; Visit Provider Internal Medicine Hematology & Oncology
DX: Z51.11 Encounter for antineoplastic chemotherapy (principal); C16.0 Malignant neoplasm of cardia; C78.6 Secondary malignant neoplasm of retroperitoneum and peritoneum; J44.9 Chronic obstructive pulmonary disease, unspecified; K21.9 Gastro-esophageal reflux disease without esophagitis; I10 Essential (primary) hypertension; Z85.46 Personal history of malignant neoplasm of prostate; R18.8 Other ascites; Z79.899 Other long term (current) drug therapy
CPT/HCPCS: 36415; 80053; 85025; 96365; 96367; 96413; 99214; C9113; J1100; J1200; J2469; J3475; J3480; J3490; J7030; J7050; J9171

== ENCOUNTER 2019-08-12 09:13 | Observation (INO) | payer MEDICARE, SELFPAY ==
[2019-08-12] VITALS (10 sets, daily range): BP systolic 86; BP diastolic 54; PULSE 105–132; RESP 24–32; TEMP 36.4; O2SAT 83–98
--- NOTE | 2019-08-12 09:28 | XRR_ITS ---
PROCEDURE INFORMATION: Exam: XR Chest, 1 View Exam date and time: 08/12/2019 9:30 AM Age: 73 years old Clinical indication: Shortness of breath; Prior surgery; Surgery date: 1-6 months; Surgery type: Port; Additional info: SOB TECHNIQUE: Imaging protocol: XR of the chest Views: 1 view. COMPARISON: CR Chest 1 view [id number] 04/04/2019 10:33 AM FINDINGS: Tubes, catheters and devices: Stable positioning of med port catheter. Lungs: Interval worsening in right-sided airspace disease. COPD and interstitial prominence. Pleural space: Worsening right pleural effusion without obscuration of the right hemidiaphragm. Heart/Mediastinum: No cardiomegaly. Bones/joints: Degenerative change. XR/XR chest 1V portable [id number] IMPRESSION: 1. Interval worsening in right-sided airspace disease. 2. Worsening right pleural effusion without obscuration of the right hemidiaphragm.
--- NOTE | 2019-08-12 09:28 | ECG_ITS ---
Measurements Intervals [place] Rate: 112 P: 75 NV: 124 QRS: 66 QRSD: 81 T: 62 QT: 313 QTc: 429 SINUS TACHYCARDIA WITH OCCASIONAL ECTOPIC PREMATURE COMPLEXES POSSIBLE LEFT ATRIAL ENLARGEMENT [-0.1mV P WAVE IN V1/V2] MINIMAL ST DEPRESSION [0.025+ mV ST DEPRESSION] No previous ECG available for comparison Electronically Signed On 08-12-2019 13:59:26 CDT by Patricia Nichols M.D. [email or web address]
--- NOTE | 2019-08-12 09:39 | W.ED.SOB ---
Documented by User: PHILIPP Morris 08/12/19 09:43 HPI - SOB/Dyspnea General: Chief Complaint: Shortness of Breath/Dyspnea Stated Complaint: SOB Time Seen by Provider: 08/12/19 09:24 History of Present Illness: HPI Narrative: Patient presents with increased shortness of breath started this morning. Did vomit a couple times. Patient has a history of stomach cancer currently under treatment. Has a history of ascites with multiple paracentesis performed last one was on Wednesday. Is scheduled be evaluated for shunt to be put in. Feels like his abdomen swelling up again. Does have a cough MD elicited complaint: shortness of breath and cough Pertinent past history: pneumonia and other (Stomach cancer esophageal cancer mass) Onset (ago): hour(s) Context: recent illness and other (Chemotherapy) Timing: constant and progressively worsening Severity: similar to previous episodes Exacerbating factors: exertion Relieving factors: oxygen (Oxygen helps some) Known history of: other (Ascites and cancer current chemotherapy) Associated symptoms: Reports dizziness, nausea, vomiting and other (Hypotension since starting on new chemotherapy treatment); Deny chest pain, extremity pain or fever(s) Treatment prior to arrival: oxygen Review of Systems Const: Denies: fever, chills or body aches Eyes: Denies: change in vision or blurry vision ENMT: Denies: throat pain or nasal congestion Card: Denies: chest pain or shortness of breath on exertion Resp: Reports: shortness of breath and non-productive cough; Denies: productive cough GI: Reports: nausea, vomiting and other (Tightness in abdomen) : Denies: difficulty urinating Musc: Denies: extremity pain Skin/Breast: Denies: rash Neuro: Reports: dizziness Psych: Denies: anxiety or depression Cole/Lymph: Denies: easy bruising PFSH ED PFSH: Social History Smoking and tobacco status: former smoker Physical Exam Const: COMMON NORMALS: no apparent distress, average body habitus and oriented x3 HENMT: COMMON NORMALS: normocephalic HEAD & SCALP: normal to inspection and normocephalic FACE & SINUS: normal facial exam Eye: COMMON NORMALS: conjunctivae normal GENERAL EYE: normal appearance of both eyes CONJUNCTIVA: Yes conjunctivae normal Neck/C-Spine: COMMON NORMALS: no JVD Chest: COMMONS NORMALS: inspection of chest normal Resp: EFFORT & INSPECTION: Yes tachypneic and Yes pursed lip breathing AUSCULTATION: crackles and diminished lung sounds Cardio: COMMON NORMALS: no JVD, regular rate and regular rhythm RATE: regular rate RHYTHM: regular rhythm GI: INSPECTION: Yes abdominal distension AUSCULTATION: Yes hypoactive bowel sounds PALPATION: Yes firm PERCUSSION: dullness to percussion RECTAL EXAM: Yes deferred Extremity: COMMON NORMALS: normal to inspection and full ROM Neuro: COMMON NORMALS: oriented x3 Course Vital Signs: Vital signs: Vital Signs Temperature 97.5 F L 08/12/19 09:21 Pulse Rate 125 H 08/12/19 10:36 Respiratory Rate 24 H 08/12/19 10:40 Blood Pressure 86/54 08/12/19 09:21 Pulse Oximetry 98 08/12/19 10:40 MDM - SOB/Dyspnea MDM Narrative: Medical decision making narrative: Have discussed case with Dr. Dickson in consultation at start of visit Lab Data: Labs: Lab Results 08/12/19 08/12/19 08/12/19 Range/Units 08:40 08:40 10:10 WBC 20.5 H (4.0-10.0) 10^3/ uL RBC 4.45 (4.1-5.3) 10^6/u L Hgb 13.4 (11.7-16.6) g/dL Hct 41.8 L (42.0-52.0) % MCV 93.9 (80-94) fL MCH 30.1 (28.0-34.0) pg MCHC 32.1 (30.0-36.0) g/dL RDW 13.5 (12.1-15.1) % Plt Count 190 (130-400) 10^3/c mm MPV 10.9 H (7.4-10.4) fL Neut % (Auto) 93.7 % Lymph % (Auto) 1.9 % Mitchell % (Auto) 3.7 % Eos % (Auto) 0.0 % Baso % (Auto) 0.1 % Neut # (Auto) 19.2 H (1.8-7.7) 10^3/u L Lymph # (Auto) 0.4 L (0.8-4.8) 10^3/u L Mitchell # (Auto) 0.8 (0.2-0.9) 10^3/u L Eos # (Auto) 0.0 (0.0-0.8) 10^3/u L Baso # (Auto) 0.0 (0.0-0.1) 10^3/u L Nucleated RBC % (a uto) 0 % Nucleated RBCs # 0.0 /100WBC Specimen Type Arterial Sample Site Radial, right ABG pH 7.27 L (7.35-7.45) ABG pO2 72.1 L (80.0-100.0) mmH g ABG HCO3 35.5 H (22-26) mmol/L ABG O2 Saturation 90.8 ABG Base Excess 5.5 H (-2.0-2.0) mmol/ L Bunny Test Pos Hematocrit 43.4 (42-52) % Hgb O2 Saturation 89.3 L (95-100) % Carboxyhemoglobin 0.5 (0.4-20.1) %THgb Methemoglobin 1.1 (0.4-1.5) % Total Hemoglobin 14.2 (14-18) g/dL Ionized Calcium 1.1 (1.1-1.4) mmol/L O2 Delivery Device Oxy mask O2 Liters/Min 10.0 % Manager Utilization ID [id number] Sodium 132 L 132.0 (136-145) mmol/L Potassium 3.5 3.7 (3.5-5.1) mmol/L Chloride 85 L (98-107) mmol/L Carbon Dioxide 34 H (22-29) mmol/L Anion Gap 16.5 (5-19) BUN 37 H (8-23) mg/dL Creatinine 1.3 H (0.7-1.2) mg/dL Glucose 178 H 181.0 H (65-115) mg/dL Calculated Osmolal ity 276 L (285-295) mOsm/k g Calcium 8.0 L (8.5-10.5) mg/dL Total Bilirubin 0.3 (0.15-1.2) mg/dL AST 33 (0-40) U/L ALT 27 (0-41) U/L Alkaline Phosphata se 74 (40-130) IU/L Total Protein 5.7 L (6.6-8.7) g/dL Albumin 3.0 L (3.5-5.2) g/dL Globulin 2.7 (1.3-4.6) g/dL Discharge Plan Discharge Patient Disposition: Placed in Observation Admit Provider: Callie Templeton Clinical Impression: Metastasis from esophageal cancer, Respiratory failure, acute Condition: Stable Coding Level of Care Code ED Architectural Examiner for Chg Fwd Exam Comprehensive Documented by User: Lance Dickson DO 08/12/19 12:09 HPI - SOB/Dyspnea General: Chief Complaint: Shortness of Breath/Dyspnea Stated Complaint: SOB Time Seen by Provider: 08/12/19 09:24 History of Present Illness: HPI Narrative: 73-year-old male presents in acute respiratory distress from home. He is a history of known esophageal cancer with widespread metastasis reviewing his previous oncology note we had recommended considering hospice. When he arrives here he is complaining of bloating in his stomach severe difficulty breathing he is hypotensive and hypoxic. We are able to reverse some of the hypoxia with albuterol nebulizer and supplemental oxygen. Initially patient was unsure about whether or not he would be a Do Not Recussitate ordered. See below he denies any fever has had sudden onset of worsening of breathing overnight. Denies productive cough. He has been isolated at home. MD elicited complaint: shortness of breath Pertinent past history: pneumonia and other (Pleural effusion, ascites) Onset (ago): hour(s) Context: other (Esophageal cancer with widespread metastasis) Timing: constant Severity: severe Exacerbating factors: exertion, coughing and talking Relieving factors: oxygen, rest and other (Medications) PFSH ED PFSH: Social History Smoking and tobacco status: former smoker Physical Exam Const: COMMON NORMALS: no apparent distress GENERAL APPEARANCE: cooperative and comfortable HENMT: COMMON NORMALS: normocephalic, head/scalp atraumatic, hearing grossly normal bilaterally, external ears normal, EAC's normal, TM's normal bilaterally, nasal mucous membranes and turbinates normal, moist oral mucous membranes and oropharynx normal HEAD & SCALP: normocephalic and atraumatic NOSE: nasal mucous membranes and turbinates normal EXTERNAL EAR: Yes external ears normal EXTERNAL AUDITORY CANAL: EAC's normal TYMPANIC MEMBRANE: TM's normal bilaterally Eye: COMMON NORMALS: PERRL, EOMs intact bilaterally, conjunctivae normal and no scleral icterus CONJUNCTIVA: Yes conjunctivae normal PUPIL: Yes PERRL Neck/C-Spine: COMMON NORMALS: full ROM, no lymphadenopathy, supple and no JVD Lymph: LYMPHATIC: no lymphadenopathy noted and no lymphedema noted Resp: COMMON NORMALS: normal respiratory effort, no retractions, no use of accessory muscles and clear to auscultation bilaterally AUSCULTATION: clear to auscultation bilaterally Cardio: COMMON NORMALS: no JVD, regular rhythm and no murmurs RATE: bradycardic RHYTHM: regular rhythm GI: COMMON NORMALS: soft to palpation and no hepatosplenomegaly AUSCULTATION: Yes normoactive bowel sounds PALPATION: Yes soft, No tender, No guarding and Yes no hepatosplenomegaly Extremity: COMMON NORMALS: normal to inspection, normal capillary refill, no clubbing, cyanosis or edema, no calf tenderness and no pedal edema Skin: COMMON NORMALS: no rashes or lesions noted GENERAL SKIN EXAM: no rashes or lesions noted Course Vital Signs: Vital signs: Vital Signs Temperature 97.5 F L 08/12/19 09:21 Pulse Rate 125 H 08/12/19 10:36 Respiratory Rate 24 H 08/12/19 10:40 Blood Pressure 86/54 08/12/19 09:21 Pulse Oximetry 98 08/12/19 10:40 MDM - SOB/Dyspnea MDM Narrative: Medical decision making narrative: Initially evaluated the patient is in acute respiratory distress ABG verified this. Patient is uncertain about CODE STATUS. Discussed with his she would like him to be hospice we were able to arrange for a face time visit with his or I was at the bedside we discussed different options ultimately they both agreed to go with hospice. I think that is the better choice for him his prognosis is very poor even with extremely aggressive treatment. We will go ahead and use morphine and Ativan as needed as well as nebulized Ativan for supportive cares due to hospital visitor restrictions initially was not able to be with him but once we had gone to end-of-life comfort cares we were able to take her back to the room to be with him. Lab Data: Labs: Lab Results 08/12/19 08/12/19 08/12/19 Range/Units 08:40 08:40 10:10 WBC 20.5 H (4.0-10.0) 10^3/ uL RBC 4.45 (4.1-5.3) 10^6/u L Hgb 13.4 (11.7-16.6) g/dL Hct 41.8 L (42.0-52.0) % MCV 93.9 (80-94) fL MCH 30.1 (28.0-34.0) pg MCHC 32.1 (30.0-36.0) g/dL RDW 13.5 (12.1-15.1) % Plt Count 190 (130-400) 10^3/c mm MPV 10.9 H (7.4-10.4) fL Neut % (Auto) 93.7 % Lymph % (Auto) 1.9 % Mitchell % (Auto) 3.7 % Eos % (Auto) 0.0 % Baso % (Auto) 0.1 % Neut # (Auto) 19.2 H (1.8-7.7) 10^3/u L Lymph # (Auto) 0.4 L (0.8-4.8) 10^3/u L Mitchell # (Auto) 0.8 (0.2-0.9) 10^3/u L Eos # (Auto) 0.0 (0.0-0.8) 10^3/u L Baso # (Auto) 0.0 (0.0-0.1) 10^3/u L Nucleated RBC % (a uto) 0 % Nucleated RBCs # 0.0 /100WBC Specimen Type Arterial Sample Site Radial, right ABG pH 7.27 L (7.35-7.45) ABG pO2 72.1 L (80.0-100.0) mmH g ABG HCO3 35.5 H (22-26) mmol/L ABG O2 Saturation 90.8 ABG Base Excess 5.5 H (-2.0-2.0) mmol/ L Bunny Test Pos Hematocrit 43.4 (42-52) % Hgb O2 Saturation 89.3 L (95-100) % Carboxyhemoglobin 0.5 (0.4-20.1) %THgb Methemoglobin 1.1 (0.4-1.5) % Total Hemoglobin 14.2 (14-18) g/dL Ionized Calcium 1.1 (1.1-1.4) mmol/L O2 Delivery Device Oxy mask O2 Liters/Min 10.0 % Manager Utilization ID drn Sodium 132 L 132.0 (136-145) mmol/L Potassium 3.5 3.7 (3.5-5.1) mmol/L Chloride 85 L (98-107) mmol/L Carbon Dioxide 34 H (22-29) mmol/L Anion Gap 16.5 (5-19) BUN 37 H (8-23) mg/dL Creatinine 1.3 H (0.7-1.2) mg/dL Glucose 178 H 181.0 H (65-115) mg/dL Calculated Osmolal ity 276 L (285-295) mOsm/k g Calcium 8.0 L (8.5-10.5) mg/dL Total Bilirubin 0.3 (0.15-1.2) mg/dL AST 33 (0-40) U/L ALT 27 (0-41) U/L Alkaline Phosphata se 74 (40-130) IU/L Total Protein 5.7 L (6.6-8.7) g/dL Albumin 3.0 L (3.5-5.2) g/dL Globulin 2.7 (1.3-4.6) g/dL Discharge Plan Discharge Patient Disposition: Placed in Observation Admit Provider: Callie Templeton Clinical Impression: Metastasis from esophageal cancer, Respiratory failure, acute Condition: Stable Coding Level of Care Code ED Architectural Examiner for Chg Fwd Exam Comprehensive
[2019-08-12] MEDS: ondansetron 2 mg/ML SDV 2 mL 4 MG IVP (09:43)
[2019-08-12 09:45] LABS: Basophils % 0.1 %; Hematocrit 41.8 % (42.0-52.0); Hemoglobin 13.4 g/dL (11.7-16.6); Lymphocytes # 0.4 10^3/uL (0.8-4.8); Lymphocytes % 1.9 %; Mean Corpuscular HGB Conc 32.1 g/dL (30.0-36.0); Mean Corpuscular Hemoglobin 30.1 pg (28.0-34.0); Mean Corpuscular Volume 93.9 fL (80-94); Mean Platelet Volume 10.9 fL (7.4-10.4); Monocytes # 0.8 10^3/uL (0.2-0.9); Monocytes % 3.7 %; Neutrophils # 19.2 10^3/uL (1.8-7.7); Neutrophils % 93.7 %; Nucleated Red Blood Cells % 0 %; Platelet Count 190 10^3/cmm (130-400); Red Blood Count 4.45 10^6/uL (4.1-5.3); Red Cell Distribution Width 13.5 % (12.1-15.1); White Blood Count 20.5 10^3/uL (4.0-10.0)
[2019-08-12] MEDS: sodium chloride 0.9% 500 ML 999 ML IV (09:54)
[2019-08-12 10:02] LABS: Alanine Aminotransferase 27 U/L (0-41); Alkaline Phosphatase 74 IU/L (40-130); Anion Gap 16.5 (5-19); Aspartate Amino Transferase 33 U/L (0-40); Blood Urea Nitrogen 37 mg/dL (8-23); Carbon Dioxide 34 mmol/L (22-29); Chloride 85 mmol/L (98-107); Globulin 2.7 g/dL (1.3-4.6); Glucose 178 mg/dL (65-115); Osmolality Calculated 276 mOsm/kg (285-295); Potassium 3.5 mmol/L (3.5-5.1); Sodium 132 mmol/L (136-145); Total Bilirubin 0.3 mg/dL (0.15-1.2); Total Protein 5.7 g/dL (6.6-8.7)
[2019-08-12 10:22] LABS: ABG PH Result 7.27 (7.35-7.45); Arterial Blood Gas Hematocrit 43.4 % (42-52); Base Excess ABG 5.5 mmol/L (-2.0-2.0); Blood Gas Allen Test Pos; Blood Gas Sample Site Radial, right; Blood Gas Sample Type Arterial; Carboxyhemoglobin 0.5 %THgb (0.4-20.1); HCO3 ABG 35.5 mmol/L (22-26); HGB O2 Sat 89.3 % (95-100); Ionized Calcium Level - ABG 1.1 mmol/L (1.1-1.4); Methemoglobin 1.1 % (0.4-1.5); Oxygen Device OXY MASK; Oxygen Saturation ABG 90.8; PO2 ABG 72.1 mmHg (80.0-100.0); Potassium Level - ABG 3.7 mmol/L (3.5-5.0); Total Hemoglobin 14.2 g/dL (14-18)
[2019-08-12] MEDS: ipratropium-albuterol 3 mL Neb INHALATION (10:33)
[2019-08-12] MEDS: morphine 4 mg/mL SDV 1 mL IVP (10:40)
[2019-08-12] MEDS: LORazepam 2 mg/mL INJ 1 mL 1 MG IVP (10:41)
[2019-08-12] MEDS: morphine 4 mg/mL SDV 1 mL 2 MG INHALATION (10:45)
--- NOTE | 2019-08-12 12:06 | PM.HP ---
Providers/Chief Complaint Admitting Physician: Callie Templeton MD Primary Care Provider: Leyla Cain MD Chief Complaint: ESOPHAGEAL CA W/METS, COMFORT CARE History of Present Illness Tavares Castaneda is a 73 year old male with PMHx of Metastatic esophageal cancer (on chemo), HTN, GERD, COPD, BPH, hx of prostate cancer s/p seed implant; presents to the ER with his for evaluation of nausea/vomiting, complains of increased reflux overnight. Patient is encountered in the ER and is currently unresponsive so history obtained from at bedside as well as review of medical record. Patient is known to me from previous admission in March 2019 when he had been treated for pneumonia. states that patient was up most of the night complaining of reflux. With continued symptoms this morning patient's called for an ambulance and then opted to bring him to the ER on her own. She states that approximately 10 miles from the hospital patient had a brief episode of unresponsiveness for approximately 10 to 15 seconds and nausea and vomiting. He was awake and alert on his arrival to the ER though did have more emesis. Complained of being short of breath and is not oxygen dependent at baseline. He seemed to quickly decline and so far is requiring 10 to 12 L via oxy-mask, got 1 L of normal saline bolus, Ativan and morphine and has been unresponsive since. Patient's has been at bedside. Also care discussion was had with and ED physician Dr. Dickson and decision made to initiate comfort measures at this time. Was contacted their daughters were approximately 3 hours away in the hopes that they can get here on time though with patient's current clinical status seems imminent. He has been admitted for continued comfort measures at this time given his critical state. provides a copy of patient's healthcare directives relating his wishes for DNR/DNI. Review of Systems General: Reports: ROS unobtainable due to mental status (obtained from at bedside) Card: Reports: syncope (en route to hospital) Resp: Reports: shortness of breath GI: Reports: nausea and vomiting Medications/Allergies Home Medications Medication Instructions Recorded Confirmed Last Taken Type albuterol sulfate [ProAir HFA] See Rx Instructions .ROUTE .COMPLEX 08/12/19 08/12/19 08/12/19 History budesonide-formoterol [Symbicort] See Rx Instructions .ROUTE .COMPLEX 08/12/19 08/12/19 08/12/19 History dexamethasone 4 mg PO DAILY 08/12/19 08/12/19 08/11/19 History lansoprazole 30 mg PO DAILY 08/12/19 08/12/19 08/11/19 History latanoprost See Rx Instructions .ROUTE .COMPLEX 08/12/19 08/12/19 08/11/19 History lisinopril-hydrochlorothiazide 20 - 25 tab PO DAILY 08/12/19 08/12/19 08/11/19 History lorazepam 1 mg PO DAILY 08/12/19 08/12/19 08/11/19 History metoprolol tartrate 50 mg PO DAILY 08/12/19 08/12/19 08/09/19 History oxycodone See Rx Instructions .ROUTE .COMPLEX 08/12/19 08/12/19 08/11/19 History tamsulosin 0.4 mg PO DAILY 08/12/19 08/12/19 08/11/19 History Allergies Allergy/AdvReac Type Severity Reaction Status Date / Time Penicillins Allergy ALGY-Hives Verified 08/12/19 09:28 PFSH Acute PFSH: Medical History Anxiety Ascites, malignant Benign prostate hyperplasia COPD (chronic obstructive pulmonary disease) Gastric reflux Hypertension Malignant neoplasm of prostate Malignant neoplasm of retroperitoneum and peritoneum Surgical History H/O hernia repair History of appendectomy History of colon resection History of prostate surgery seed implant in 2014 Family History Mother Lung disease COPD Father CAD (coronary artery disease) Brother Cancer colon cancer Grandmother Cancer maternal; gastric cancer Social History (Updated 08/12/19 @ 12:16 by Callie Templeton MD) Smoking and tobacco status: former smoker Quit status (tobacco): has quit using tobacco Year quit tobacco: 2019 Alcohol intake: never Substance/Drug Use: never Household members: spouse Marital status: Vitals/I&O/Wt Last Vital Signs Temp 97.5 F L 08/12/19 09:21 Pulse 125 H 08/12/19 10:36 Resp 24 H 04/18/20 10:40 BP 86/54 08/12/19 09:21 Pulse Ox 98 08/12/19 10:40 Physical Exam Const: COMMON NORMALS: no apparent distress GENERAL APPEARANCE: ill appearing OTHER: -currently unresponsive HENMT: COMMON NORMALS: normocephalic and head/scalp atraumatic HEAD & SCALP: normocephalic and atraumatic MOUTH: moist mucous membranes abnormal Details: parched Neck/C-Spine: COMMON NORMALS: full ROM GENERAL: Yes normal visual inspection and Yes trachea midline Chest: OTHER: -has port-A-cath on R Resp: EFFORT & INSPECTION: Yes symmetric chest movement, Yes tachypneic, Yes retractions and Yes prolonged expiratory phase OTHER: -coarse breath sounds diffusely, on 10 L oxy-mask Cardio: COMMON NORMALS: regular rhythm, S1 normal heart sound, S2 normal heart sound and no murmurs RATE: tachycardic RHYTHM: regular rhythm HEART SOUNDS: S1 normal and S2 normal OTHER: -hypotensive, tachycardic GI: COMMON NORMALS: soft to palpation INSPECTION: Yes abdominal distension PALPATION: Yes soft Extremity: COMMON NORMALS: normal to inspection, no clubbing, cyanosis or edema and no pedal edema Neuro: SENSORIUM/ORIENTATION: Yes other (unresponsive) Data : 08/12/19 08:40 08/12/19 08:40 Micro: Microbiology 08/12/19 10:24 Blood Culture - Preliminary Blood SPECIMEN COLLECTED 08/12/19 08:40 Blood Culture - Preliminary Blood SPECIMEN COLLECTED A&P Assessment and plan (1) Respiratory failure, acute: -acute hypoxic and hypercapnic respiratory failure -requiring supplemental oxygen support, on 10 L currently -monitor respiratory status -with noted episodes of emesis suspect aspiration -currently unresponsive and per discussion with , is now on comfort measures Status: Acute Qualifiers: Respiratory failure complication: hypoxia and hypercapnia Qualified Code(s): J96.01 - Acute respiratory failure with hypoxia; J96.02 - Acute respiratory failure with hypercapnia (2) Metastasis from esophageal cancer: -has known hx of metastatic gastroesophageal adenocarcinoma s/p chemotherapy (has been on paclitaxel and Cyramza). Follows up with Dr. Valladares. Has widely metastatic medullary peritoneal carcinomatosis, malignant ascites s/p multiple paracentesis Status: Chronic Additional A&P Information -Liver cirrhosis -Former smoker -COPD, not oxygen dependent at baseline -HTN -GERD -Anxiety -hx of prostate cancer s/p seed implant (2015) -on comfort measures; with current clinical status, appears imminent -Code status: DNR/DNI Attestations Medical Necessity Statement*: Tavares Castaneda's hospital stay will be less than 2 midnights for comfort measures, anticipate imminent . Time Spent in Patient Care: Greater than 35 minutes (>than 50% of time spent in counselling and/or direct pt care on unit). Coding Level of Care Code Acute Public Works Director for Horace Chavarria Diagnoses Respiratory failure, acute J96.01; J96.02 Respiratory failure complication: hypoxia and hypercapnia Metastasis from esophageal cancer C79.9; C15.9
--- NOTE | 2019-08-12 13:00 | PC.NURSE ---
Patient to room from ER via stretcher.repositioned patient, at bedside,instructed station master light .
--- NOTE | 2019-08-12 13:11 | PC.NURSE ---
Note correction Time of 13:11pm
--- NOTE | 2019-08-12 13:17 | PC.NURSE ---
Dr Templeton notifited
--- NOTE | 2019-08-12 13:45 | PC.NURSE ---
At 1311 called to patient room to assess cessation of respirations and heart rate. at bedside. Patient without respiration or heart tones. comforted. Notified physician and electrician apprentice powerhouse of patients passing. Savings sights and MTS notified with determination that patient was not a candidate. given information regarding homes in the area for cremation.
--- NOTE | 2019-08-12 14:47 | PM.DDS ---
Discharge Providers DDS Date of Admission: 08/12/19 10:58 Date Summary Completed: 08/12/19 Attending Provider at Admission: Callie Templeton MD Time of : 13:11 Attending Provider at Discharge: Callie Templeton MD Primary Care Provider: Leyla Cain MD DS Diagnoses Hospital Diagnoses (1) Respiratory failure, acute: Problem details: -acute hypoxic and hypercapnic respiratory failure -requiring supplemental oxygen support, on 10 L currently -monitor respiratory status -with noted episodes of emesis suspect aspiration -currently unresponsive and per discussion with , is now on comfort measures Qualifiers: Respiratory failure complication: hypoxia and hypercapnia Qualified Code(s): J96.01 - Acute respiratory failure with hypoxia; J96.02 - Acute respiratory failure with hypercapnia (2) Metastasis from esophageal cancer: Problem details: -has known hx of metastatic gastroesophageal adenocarcinoma s/p chemotherapy (has been on paclitaxel and Cyramza). Follows up with Dr. Valladares. Has widely metastatic medullary peritoneal carcinomatosis, malignant ascites s/p multiple paracentesis Other Contributing Factors/Diagnoses -Liver cirrhosis -Former smoker -COPD, not oxygen dependent at baseline -HTN -GERD -Anxiety -hx of prostate cancer s/p seed implant (2014) Reason for Visit Reason for Visit: Reason For Visit: ESOPHAGEAL CA W/METS, COMFORT CARE Summary Date and Time of : Date of : 08/12/19 Time of : 13:11 Summary: Summary: As documented in my history and physical patient was already unresponsive at the time of my initial evaluation in the ER. Given presentation and history likely aspirated, already has underlying metastatic esophageal cancer with known peritoneal carcinomatosis. With nausea and vomiting suspect some element of obstruction. Shortly upon his arrival to the medical surgical floor on comfort measures patient . present at bedside. Discharge Plan Discharge Patient Disposition: Condition: Prescriptions: Discontinued latanoprost 0.005 % drops See Rx Instructions .ROUTE .COMPLEX RF: 0 tamsulosin 0.4 mg capsule 0.4 mg PO DAILY RF: 0 dexamethasone 4 mg tablet 4 mg PO DAILY RF: 0 lansoprazole 30 mg capsule,delayed release(DR/EC) 30 mg PO DAILY RF: 0 metoprolol tartrate 50 mg tablet 50 mg PO DAILY RF: 0 lisinopril-hydrochlorothiazide 20-25 mg tablet 20 - 25 tab PO DAILY RF: 0 lorazepam 1 mg tablet 1 mg PO DAILY RF: 0 ProAir HFA 90 mcg/actuation HFA aerosol inhaler See Rx Instructions .ROUTE .COMPLEX RF: 0 Symbicort 160-4.5 mcg/actuation HFA aerosol inhaler See Rx Instructions .ROUTE .COMPLEX RF: 0 oxycodone See Rx Instructions .ROUTE .COMPLEX RF: 0 Discharge Orders: Discharge Order (Routine); Ordered 08/12/19 Ordered By: Callie HARRISON Attestations Time Spent in /Discharge Care*: less than 30 min Quality - AMI: AMI present?: No Quality - Stroke: CVA present?: No Quality - VTE: VTE present?: No Coding Level of Care Code Acute Sanitation Truck Driver for Horace Chavarria Diagnoses Respiratory failure, acute J96.01; J96.02 Respiratory failure complication: hypoxia and hypercapnia Metastasis from esophageal cancer C79.9; C15.9
--- NOTE | 2019-08-12 15:00 | PC.NURSE ---
turned call light on, patient apnic and pulseless,confirmed by Jarrett MCCARTY
[2019-08-13 15:32] LABS: ABG PCO2 78.2 mmHg (35-45)
== END 2019-08-12 16:00 | disposition expired ==
LOC: ER 11:48 → MEDSURG 11:49
PROVIDERS: Nurse Practitioner Family; Admitting Provider Family Medicine; Emergency Provider Family Medicine; PCP Family Medicine; Visit Provider Family Medicine
DX: J96.02 Acute respiratory failure with hypercapnia (principal); J96.01 Acute respiratory failure with hypoxia; C79.9 Secondary malignant neoplasm of unspecified site; C15.9 Malignant neoplasm of esophagus, unspecified; Z87.891 Personal history of nicotine dependence; J44.9 Chronic obstructive pulmonary disease, unspecified; I10 Essential (primary) hypertension; K21.9 Gastro-esophageal reflux disease without esophagitis; F41.9 Anxiety disorder, unspecified; Z85.46 Personal history of malignant neoplasm of prostate; Z66 Do not resuscitate; N40.0 Benign prostatic hyperplasia without lower urinary tract symptoms; Z82.49 Family history of ischemic heart disease and other diseases of the circulatory system
CPT/HCPCS: 12345; 36415; 36600; 71045; 80051; 80053; 82810; 83986; 85025; 87040; 93005; 94640; 96360; 96361; 96374; 96375; 96376; 99283; 99285; G0378; J2060; J2270; J2405; J7040